=== PATIENT | female | born 1960 | race Caucasian/White ===

== ENCOUNTER 2021-08-05 10:23 | Outpatient (REF) | payer MEDICARE, SELFPAY ==
--- NOTE | ~2021-08-05 | MM_ITS ---
EXAMINATION: MM SCREENING DIGITAL BREAST TOMOSYNTHESIS, BILATERAL CLINICAL INFORMATION: Screening. Asymptomatic. The lifetime risk of breast cancer based on the Tyrer-Cuzick Model is 6%. COMPARISON: Mammography: 02/11/2018, 12/03/2016, 08/28/2015 TECHNIQUE: Digital breast tomosynthesis is performed in both the craniocaudal and mediolateral oblique views along with computer-aided detection (CAD). Synthesized 2D images are generated from the tomosynthesis. FINDINGS: The breasts are heterogeneously dense, which may obscure small masses (ACR BI-RADS breast composition Category c). There are no significant masses, abnormal calcifications, or other abnormalities. Parenchymal pattern is similar to prior studies. There is no developing density or architectural abnormality. The axilla and skin contours are unremarkable. No significant changes. MM/MM tomosynthesis screening BI IMPRESSION: No mammographic evidence of malignancy. ASSESSMENT: BI-RADS 1: Negative RECOMMENDATION: Routine annual mammography screening. This patient's information was entered into a reminder system with a target due date for their next mammogram.
== END 2021-08-05 10:24 | disposition home or self-care (01) ==
LOC: HO.MAMMO 10:23
PROVIDERS: PCP Internal Medicine; Visit Provider Internal Medicine
DX: Z12.31 Encounter for screening mammogram for malignant neoplasm of breast (principal)
CPT/HCPCS: 77063; 77067

== ENCOUNTER 2021-08-05 12:19 | Outpatient (REF) | payer MEDICARE, SELFPAY ==
[2021-08-06 09:17] LABS: CT PCR NOT DETECTED (Not Detect.); NG PCR NOT DETECTED (Not Detect.)
[2021-08-06 11:05] LABS: BV Int Neg Control Negative (Negative); BV Int Pos Control Positive (Positive)
[2021-08-07 20:51] LABS: HPV mRNA E6/E7 rflx Not Detected (Not Detected)
== END 2021-08-05 12:20 | disposition home or self-care (01) ==
LOC: HO.LAB 12:19
PROVIDERS: Visit Provider Advanced Practice Midwife
DX: Z12.31 Encounter for screening mammogram for malignant neoplasm of breast (principal); Z01.419 Encounter for gynecological examination (general) (routine) without abnormal findings; Z11.51 Encounter for screening for human papillomavirus (HPV); Z20.2 Contact with and (suspected) exposure to infections with a predominantly sexual mode of transmission
CPT/HCPCS: 77063; 77067; 87480; 87491; 87510; 87591; 87624; 87660; 88142

== ENCOUNTER 2022-05-27 15:15 | Outpatient (REF) | payer MEDICARE, SELFPAY ==
[2022-05-27 16:21] LABS: Appearance Urine Clear; Color Urine Yellow; Glucose Urine UA Negative (Negative); Leukocyte Esterase Urine Negative (Negative); Nitrite Urine Negative (Negative); Specific Gravity - Urine 1.025 (1.005-1.025); UMIC TRIGGER UACC YES; Urine Blood Trace (Negative); Urine Ketones Negative (Negative); Urine Protein Negative (Neg-Trace)
[2022-05-27 16:26] LABS: Bacteria Urine 1+ (None Seen); Hyaline Casts Urine 0-2 /LPF (0-2); WBC Urine 0-5 /HPF (0-5)
== END 2022-05-27 15:16 | disposition home or self-care (01) ==
LOC: HO.LAB 15:15
PROVIDERS: Visit Provider Advanced Practice Midwife
DX: R10.2 Pelvic and perineal pain (principal)
CPT/HCPCS: 81001; 81003; 99212

== ENCOUNTER 2022-06-06 02:13 | Emergency (ER) | payer MEDICARE, SELFPAY ==
--- NOTE | ~2022-06-06 | CT_ITS ---
EXAMINATION: CT ABDOMEN AND PELVIS WITHOUT CONTRAST CLINICAL INFORMATION: Suprapubic pain. COMPARISON: No similar priors. TECHNIQUE: Multidetector volumetric imaging was performed from the superior aspect of the liver through the pubic symphysis. Sagittal and coronal reformatted images were obtained on the technologist's workstation. This CT examination was performed using dose optimization techniques as appropriate, variously including the following: *Automated exposure control *Adjustment of mA and/or kV according to patient size (this includes techniques or standardized protocols for targeted exams where dose is matched to indication/reason for exam; i.e. extremities or head) *Use of iterative reconstruction technique DLP: 517 mGy-cm FINDINGS: LUNG BASES: Subsegmental atelectasis versus scarring in the right lower lobe. No focal consolidation or pleural effusion. LIVER, GALLBLADDER, AND BILIARY TREE: Limited noncontrast evaluation of the liver without discrete focal lesion. Normal gallbladder. No biliary ductal dilatation. PANCREAS: Limited noncontrast examination. No pancreatic ductal dilatation. No significant peripancreatic free fluid and fat stranding. SPLEEN: Atrophic. No discrete focal abnormality in this limited noncontrast examination. ADRENAL GLANDS: No adrenal mass. KIDNEYS AND URETERS: No nephrolithiasis or hydronephrosis. Cortical thinning/scarring of the lateral upper left kidney. No perinephric fat stranding. BLADDER: Underdistended limiting its evaluation. GASTROINTESTINAL TRACT: Nonspecific gastric distention. The small bowel is nondilated. Normal appendix. Mild diverticulosis. No pericolonic inflammatory changes. No evidence of bowel obstruction. ABDOMINAL WALL: No significant hernia is appreciated. LYMPH NODES: No pathologically enlarged lymph nodes. VASCULAR: Limited noncontrast examination. The infrarenal abdominal aorta measures up to 2.8 cm. PELVIC VISCERA: Unremarkable. OSSEOUS STRUCTURES: No acute or aggressive appearing osseous abnormalities. CT/CT abdomen pelvis wo IV con IMPRESSION: 1. Nonspecific gastric distention differentials include postprandial state, gastroparesis or gastric outlet obstruction. 2. Mild diverticulosis but no evidence of acute diverticulitis. 3. No nephrolithiasis or hydronephrosis.
[2022-06-06 02:15] VITALS: BP 126/80; PULSE 100; RESP 20; TEMP 36.5; O2SAT 94; BMI 27.6
--- NOTE | 2022-06-06 02:49 | ED_ITS ---
HPI - Abdominal Pain General Chief Complaint: Abdominal Pain Stated Complaint: pelvic pain Time Seen by Provider: 06/06/22 02:38 Source: patient Mode of arrival: EMS Limitations: no limitations History of Present Illness HPI narrative: Patient comes to the emergency room complaining of several weeks of suprapubic p ain. Patient states that it feels very sharp, radiating towards the back, intermittent. Patient has been evaluated by her OBGYN approximately 1 week and half ago. Patient denies chest pain or shortness of breath, no upper abdominal pain, no flank pain, no hematuria or dysuria. On 05/27/2022, patient was treated with double strength Bactrim. Patient states that she has no resolution of her symptoms. Patient complaining of feeling very anxious, states that she is afraid that she will be diagnosed with cancer. Patient also feeling anxious that we may need to do a pelvic exam. Requesting if he can skip it for the meantime. Patient had a pelvic exam on May 27, there was no abnormality visualized by her OB Gyne. Patient requesting 1 dose of p.o. Ativan Related Data Home Medications Medication Instructions Recorded Confirmed alprazolam 2 mg tablet (Xanax) 2 mg PO TID 08/05/21 05/27/22 levothyroxine 175 mcg capsule 175 mcg PO DAILY 08/05/21 05/27/22 simvastatin 20 mg tablet 20 mg PO DAILY 08/05/21 05/27/22 clonazepam 2 mg tablet mg PO 05/27/22 05/27/22 lamotrigine 200 mg tablet mg PO 05/27/22 05/27/22 omeprazole 20 mg capsule,delayed mg PO 05/27/22 05/27/22 release Previous Rx's Medication Instructions Recorded phenazopyridine 200 mg tablet 200 mg PO TID 6 doses #6 tabs 05/27/22 (Pyridium) sulfamethoxazole 800 1 tab PO Q12H #14 tabs 05/27/22 mg-trimethoprim 160 mg tablet tramadol 50 mg tablet 50 mg PO BID PRN pain #7 tabs 06/06/22 Allergies Allergy/AdvReac Type Severity Reaction Status Date / Time acetaminophen [From VICODIN] Allergy Unknown VOMITTING Verified 05/27/22 14:22 hydrocodone [Vicodin] Allergy Unknown nausea and Verified 05/27/22 14:22 vomiting From VICODIN Allergy Unknown VOMITTING Uncoded 05/27/22 14:22 Review of Systems Review of Systems Constitutional : No Weight loss, No Fever, No Chills, No Night Sweats, No Fatigue, No Malaise ENT/Mouth : No Hearing loss, No Ear Pain, No Nasal Congestion, No Sinus Pain, No Hoarseness, No sore throat, No Rhinorrhea, No Swallowing Difficulty Eyes: No Eye Pain, No Swelling, No Redness, No Foreign Body, No Discharge, No Vision Changes Cardiovascular : No Chest Pain, No SOB, No Dyspnea on Exertion, No Orthopnea, No Edema, No Palpitations Respiratory : No Cough, No Sputum, No Wheezing, No Smoke Exposure, No Dyspnea Gastrointestinal : No Nausea, No Vomiting, No Diarrhea, No Constipation, complaining of suprapubic sharp pain lasting for 30 minutes, intermittently, no pain at this time, no hematochezia Genitourinary : no irregular bleeding, No Dysuria, No Urinary Frequency, No Hematuria, No Urinary Incontinence, No Urgency, No Flank Pain, No Urinary Flow Changes, No Hesitancy Musculoskeletal : No joint pain, No Myalgias, No Joint Swelling Skin : No Skin Lesions, No rash Neuro : No Weakness, No Numbness, No Paresthesias, No Loss of Consciousness, No Dizziness, No Headache Psych : No Anxiety/Panic, No Depression, No SI/HI/AH/VH, No Social Issues, Heme/Lymph: No Bruising, No Bleeding,No Lymphadenopathy Endocrine : No Polyuria, No Polydipsia, No Temperature Intolerance PMFSH Past Medical History Medical History Bipolar 1 disorder COPD (chronic obstructive pulmonary disease) Hypothyroid Surgical History H/O shoulder surgery History of carpal tunnel surgery Family History Family History Father Lung cancer Social History Social History Alcohol intake: never Patient Tobacco Use Status: Current someday Tobacco user Cigarettes Per Day: 10 Smoked in Last 30 Days: Yes Use of substances other than those prescribed or required for medical reasons: No Advance Directives: No Advance Directives Information Provided: No Patient : No Gender identity: Female Physical Exam ED Vital Signs: Vital Signs - 24 hr 06/06/22 02:15 06/06/22 05:58 Temperature 97.7 F 98.2 F Pulse Rate 100 71 Respiratory Rate 20 18 Blood Pressure 126/80 149/111 H Pulse Oximetry 94 98 Oxygen Delivery Method Room Air Nasal Cannula Oxygen Flow Rate 2 BMI result Body Mass Index 27.6 Const Other: Appearance: Alert. Oriented X3. No acute distress. Eyes: Pupils equal, round and reactive to light. ENT: Pharynx normal. Neck: Normal inspection. Neck supple. No lymph nodes noted. No crepitus CVS: Normal heart rate and rhythm. Pulses normal. Normal S1 and S2 Respiratory: No respiratory distress. Breath sounds normal. No Wheezing. No rales Abdomen: Soft and nontender. No rigidity. No distention. Skin: Skin warm and dry. Normal skin color. Normal skin turgor. Extremities: No lower extremity edema. No Lacerations. No Rash Neuro: Oriented X 3. No motor deficit. No sensory deficit. Moving all extremities. No slurred speech. CN 2 through 12 grossly intact Psych: calm, cooperative, slightly anxious Course Course Course Narrative: All the patient's labs and imaging pending. Patient has an ultrasound pending. At this time, we will get an abdomen/pelvis CT I discussed the CT scan and labs with the patient, no acute findings. I discussed with the patient that she needs to follow-up with her OBGYN and also get her ultrasound down as scheduled. Patient states that her ultrasound is to be done sometime in June. Patient states that she knows someone from administration, and stating that she will pull strings to have her ultrasound done as soon as possible. Of note, I was informed by the patient's nurse, technicians, and community support worker that the patient accused them from talking poorly of the hospital in patients while they were outside the patient's room or in the nurse's unit. The nurses, technicians and the community support worker all denied that this is true. They state that Patient misinterpreted what she heard. Patient demanding to speak to the charge nurse. I discussed with the patient that at this time, all the nurses and charge nurses are changing shift, and there is a critical patient that needs to be taking care of 1st. Once patient's nurse and charge nurse became available, they went to talk to the patient. The nurses told me that they felt that they were being bullied by the patient, as the patient kept telling them that she was texting higher ups telling them you know who I know When patient's nurse walked into the room to check on her, the patient told her nurse I want you to know that I am going to report this , and the patient's nurse had no idea what the patient was talking about Medical Decision Making Differential Diagnosis Differential Diagnoses: The differential diagnosis associated with the presentation includes (UTI, diverticulitis, ureterolithiasis) Lab Data Result Diagrams: 06/06/22 05:16 06/06/22 06:24 Labs: Lab Results 06/06/22 06/06/22 06/06/22 Range/Units 02:40 02:40 05:16 WBC 8.3 9.0 (4.8-10.8) X10*3/uL RBC 3.96 L 3.54 L (4.20-5.50) X10*6/uL Hgb 13.4 11.9 L (12.0-16.0) g/dl Hct 40.8 37.4 (37.0-47.0) % MCV 103.0 H 105.6 H (80.0-98.0) fL MCH 33.8 H 33.6 H (27.0-33.0) pg MCHC 32.8 31.8 (31.0-35.0) g/dl RDW 12.7 12.7 (11.0-16.0) % Plt Count 297 266 (160-400) X10*3/uL MPV 8.8 L 8.8 L (9.4-12.3) fL Immature Gran % (Auto) 0.1 0.3 (0.0-0.4) % Neut % (Auto) 35.2 L 42.5 L (45-73) % Lymph % (Auto) 49.0 H 40.0 (20-40) % Tompkins % (Auto) 8.0 9.4 (2-11) % Eos % (Auto) 6.9 H 6.8 H (0-4) % Baso % (Auto) 0.8 1.0 (0-2) % Lymph # (Auto) 4.1 3.6 (1.2-4.9) X10*3/uL Tompkins # (Auto) 0.7 0.8 (0.1-1.2) X10*3/uL Eos # (Auto) 0.6 H 0.6 H (0.0-0.4) X10*3/uL Baso # (Auto) 0.1 0.1 (0.0-0.2) X10*3/uL Abs Immat Gran (auto) 0.01 0.03 (0.00-0.03) X10*3/uL Absolute Neuts (auto) 2.9 3.8 (2.0-8.3) x10*3/uL Absolute Nucleated RBC 0.000 0.000 (0.0-0.012) X10*3/uL Nucleated RBC % (auto) 0.0 0.0 (0.0-0.2) /100WBC Sodium 141 (135-145) mmol/L Potassium 4.3 (3.3-5.1) mmol/L Chloride 105 (96-108) mmol/L Carbon Dioxide 26 (22-29) mmol/L Anion Gap 14 (12-20) BUN 13 (9-16) mg/dL Creatinine 1.50 H (0.5-1.4) mg/dL Estim Creat Clear Calc 41.7 Estimated GFR 35 Random Glucose 96 (60-115) mg/dL Calcium 9.7 (8.4-10.2) mg/dL Total Bilirubin 0.2 (0.0-1.0) mg/dL Direct Bilirubin < 0.2 (0.0-0.5) mg/dL AST 22 (5-31) U/L ALT 15 (0-31) U/L Alkaline Phosphatase 81 (39-117) U/L Total Protein 7.3 (6.5-8.0) g/dL Albumin 4.4 (3.5-5.0) g/dL Lipase 18 (8-78) U/L Urine Color Urine Appearance Urine pH (5.0-9.0) Ur Specific Antlers (1.005-1.025) Urine Protein (Neg-Trace) mg/dL Urine Glucose (UA) (Negative) mg/dL Urine Ketones (Negative) mg/dL Urine Blood (Negative) Urine Nitrite (Negative) Ur Leukocyte Esterase (Negative) 06/06/22 06/06/22 Range/Units 06:00 06:24 WBC (4.8-10.8) X10*3/uL RBC (4.20-5.50) X10*6/uL Hgb (12.0-16.0) g/dl Hct (37.0-47.0) % MCV (80.0-98.0) fL MCH (27.0-33.0) pg MCHC (31.0-35.0) g/dl RDW (11.0-16.0) % Plt Count (160-400) X10*3/uL MPV (9.4-12.3) fL Immature Gran % (Auto) (0.0-0.4) % Neut % (Auto) (45-73) % Lymph % (Auto) (20-40) % Tompkins % (Auto) (2-11) % Eos % (Auto) (0-4) % Baso % (Auto) (0-2) % Lymph # (Auto) (1.2-4.9) X10*3/uL Tompkins # (Auto) (0.1-1.2) X10*3/uL Eos # (Auto) (0.0-0.4) X10*3/uL Baso # (Auto) (0.0-0.2) X10*3/uL Abs Immat Gran (auto) (0.00-0.03) X10*3/uL Absolute Neuts (auto) (2.0-8.3) x10*3/uL Absolute Nucleated RBC (0.0-0.012) X10*3/uL Nucleated RBC % (auto) (0.0-0.2) /100WBC Sodium 140 (135-145) mmol/L Potassium 4.5 (3.3-5.1) mmol/L Chloride 107 (96-108) mmol/L Carbon Dioxide 26 (22-29) mmol/L Anion Gap 12 (12-20) BUN 15 (9-16) mg/dL Creatinine 1.18 (0.5-1.4) mg/dL Estim Creat Clear Calc 53.0 Estimated GFR 46 Random Glucose 95 (60-115) mg/dL Calcium 8.8 D (8.4-10.2) mg/dL Total Bilirubin (0.0-1.0) mg/dL Direct Bilirubin (0.0-0.5) mg/dL AST (5-31) U/L ALT (0-31) U/L Alkaline Phosphatase (39-117) U/L Total Protein (6.5-8.0) g/dL Albumin (3.5-5.0) g/dL Lipase (8-78) U/L Urine Color Yellow Urine Appearance Clear Urine pH 5.5 (5.0-9.0) Ur Specific Antlers >= 1.030 H (1.005-1.025) Urine Protein Negative (Neg-Trace) mg/dL Urine Glucose (UA) Negative (Negative) mg/dL Urine Ketones Trace (Negative) mg/dL Urine Blood Negative (Negative) Urine Nitrite Negative (Negative) Ur Leukocyte Esterase Negative (Negative) Independent Interpretation I performed an independent interpretation of an: CT Scan Interpretation: My interpretation of the CT scan of the abdomen, shows no acute abnormalities, agree with radiology report: FINDINGS: LUNG BASES: Subsegmental atelectasis versus scarring in the right lower lobe. No focal consolidation or pleural effusion.? LIVER, GALLBLADDER, AND BILIARY TREE: Limited noncontrast evaluation of the liver without discrete focal lesion. Normal gallbladder. No biliary ductal dilatation. PANCREAS: Limited noncontrast examination. No pancreatic ductal dilatation. No significant peripancreatic free fluid and fat stranding. ? SPLEEN: Atrophic. No discrete focal abnormality in this limited noncontrast examination.? ADRENAL GLANDS: No adrenal mass.? KIDNEYS AND URETERS: No nephrolithiasis or hydronephrosis. Cortical thinning/scarring of the lateral upper left kidney. No perinephric fat stranding.? BLADDER: Underdistended limiting its evaluation.? GASTROINTESTINAL TRACT: Nonspecific gastric distention. The small bowel is nondilated. Normal appendix. Mild diverticulosis. No pericolonic inflammatory changes. No evidence of bowel obstruction.? ABDOMINAL WALL: No significant hernia is appreciated.? LYMPH NODES: No pathologically enlarged lymph nodes. VASCULAR: Limited noncontrast examination. The infrarenal abdominal aorta measures up to 2.8 cm. PELVIC VISCERA: Unremarkable.? OSSEOUS STRUCTURES: No acute or aggressive appearing osseous abnormalities.? CT/CT abdomen pelvis wo IV con IMPRESSION: 1.? Nonspecific gastric distention differentials include postprandial state, gastroparesis or gastric outlet obstruction. 2.? Mild diverticulosis but no evidence of acute diverticulitis. 3.? No nephrolithiasis or hydronephrosis. ? Medications Administered Discontinued Medications Generic Name Dose Route Start Last Admin Trade Name Freq PRN Reason Stop Dose Admin Sodium Chloride 1,000 mls @ 999 mls/hr 06/06/22 03:32 06/06/22 05:08 Ns IVCONT 06/06/22 04:32 Infused .Q1H1M ONE Infusion Lorazepam 1 mg 06/06/22 02:51 06/06/22 03:00 Lorazepam 1 Mg Tablet PO 06/06/22 02:52 1 mg ONCE ONE Administration Discharge Plan Discharge Clinical Impression: Abdominal pain Patient Disposition: Home, Self-Care Instructions: Abdominal Pain (ED) Additional Instructions: Please follow-up with your primary care physician tomorrow. If you have any worsening or new symptoms, please return to the emergency room or call 911 Prescriptions: New tramadol 50 mg tablet 50 mg PO BID PRN (Reason: pain) Qty: 7 0RF No Action simvastatin 20 mg tablet 20 mg PO DAILY levothyroxine 175 mcg capsule 175 mcg PO DAILY alprazolam [Xanax] 2 mg tablet 2 mg PO TID omeprazole 20 mg capsule,delayed release(DR/EC) PO clonazepam 2 mg tablet PO lamotrigine 200 mg tablet PO sulfamethoxazole-trimethoprim 800-160 mg tablet 1 tab PO Q12H Qty: 14 0RF phenazopyridine [Pyridium] 200 mg tablet 200 mg PO TID Qty: 6 0RF Referrals: Elias Cheng MD [Physician] - 3 days Interventions: ED Discharge Assessment Last Done: 06/06/22 07:25
[2022-06-06 02:50] LABS: Basophils Absolute Auto 0.1 X10*3/uL (0.0-0.2); Basophils Percent Auto 0.8 % (0-2); Eosinophils Absolute Auto 0.6 X10*3/uL (0.0-0.4); Eosinophils Percent Auto 6.9 % (0-4); Hematocrit 40.8 % (37.0-47.0); Hemoglobin 13.4 g/dl (12.0-16.0); Imm Gran Abs Auto 0.01 X10*3/uL (0.00-0.03); Imm Gran Pct Auto 0.1 % (0.0-0.4); Lymphocytes Absolute Auto 4.1 X10*3/uL (1.2-4.9); MANUAL DIFF FLAG NO; Mean Corpuscular HGB Conc 32.8 g/dl (31.0-35.0); Mean Corpuscular Hemoglobin 33.8 pg (27.0-33.0); Mean Platelet Volume 8.8 fL (9.4-12.3); Monocytes Absolute Auto 0.7 X10*3/uL (0.1-1.2); Neutrophils Absolute Auto 2.9 x10*3/uL (2.0-8.3); Neutrophils Percent Auto 35.2 % (45-73); Platelet Count 297 X10*3/uL (160-400); Red Blood Count 3.96 X10*6/uL (4.20-5.50); Red Cell Distribution Width 12.7 % (11.0-16.0); White Blood Count 8.3 X10*3/uL (4.8-10.8)
[2022-06-06] MEDS: LORazepam 1 MG TABLET PO (03:00)
[2022-06-06 03:06] LABS: Alanine Aminotransferase 15 U/L (0-31); Albumin Level 4.4 g/dL (3.5-5.0); Alkaline Phosphatase 81 U/L (39-117); Anion Gap 14 (12-20); Aspartate Amino Transferase 22 U/L (5-31); Bilirubin Direct < 0.2 mg/dL (0.0-0.5); Bilirubin Total 0.2 mg/dL (0.0-1.0); Blood Urea Nitrogen 13 mg/dL (9-16); Calcium 9.7 mg/dL (8.4-10.2); Carbon Dioxide 26 mmol/L (22-29); Chloride 105 mmol/L (96-108); Creatinine Clr Calc Pharmacy 41.7; Estimated Glomerular Filt Rate 35; Glucose Random 96 mg/dL (60-115); Lipase 18 U/L (8-78); Potassium 4.3 mmol/L (3.3-5.1); Sodium 141 mmol/L (135-145); Total Protein 7.3 g/dL (6.5-8.0)
[2022-06-06] MEDS: 0.9 % Sodium Chloride 1,000 ML 999 ML IVCONT (03:49)
[2022-06-06 05:24] LABS: MANUAL DIFF FLAG NO
[2022-06-06 05:25] LABS: Basophils Absolute Auto 0.1 X10*3/uL (0.0-0.2); Eosinophils Absolute Auto 0.6 X10*3/uL (0.0-0.4); Eosinophils Percent Auto 6.8 % (0-4); Hematocrit 37.4 % (37.0-47.0); Hemoglobin 11.9 g/dl (12.0-16.0); Imm Gran Abs Auto 0.03 X10*3/uL (0.00-0.03); Imm Gran Pct Auto 0.3 % (0.0-0.4); Lymphocytes Absolute Auto 3.6 X10*3/uL (1.2-4.9); Mean Corpuscular HGB Conc 31.8 g/dl (31.0-35.0); Mean Corpuscular Hemoglobin 33.6 pg (27.0-33.0); Mean Corpuscular Volume 105.6 fL (80.0-98.0); Mean Platelet Volume 8.8 fL (9.4-12.3); Monocytes Absolute Auto 0.8 X10*3/uL (0.1-1.2); Monocytes Percent Auto 9.4 % (2-11); Neutrophils Absolute Auto 3.8 x10*3/uL (2.0-8.3); Neutrophils Percent Auto 42.5 % (45-73); Platelet Count 266 X10*3/uL (160-400); Red Blood Count 3.54 X10*6/uL (4.20-5.50); Red Cell Distribution Width 12.7 % (11.0-16.0)
[2022-06-06 05:58] VITALS: BP 149/111; PULSE 71; RESP 18; TEMP 36.8; O2SAT 98
[2022-06-06 06:10] LABS: Appearance Urine Clear; Color Urine Yellow; Glucose Urine UA Negative (Negative); Leukocyte Esterase Urine Negative (Negative); Nitrite Urine Negative (Negative); PH 5.5 (5.0-9.0); Specific Gravity - Urine >= 1.030 (1.005-1.025); Urine Blood Negative (Negative); Urine Ketones Trace mg/dL (Negative); Urine Protein Negative (Neg-Trace)
[2022-06-06 06:49] LABS: Anion Gap 12 (12-20); Blood Urea Nitrogen 15 mg/dL (9-16); Calcium 8.8 mg/dL (8.4-10.2); Carbon Dioxide 26 mmol/L (22-29); Chloride 107 mmol/L (96-108); Estimated Glomerular Filt Rate 46; Glucose Random 95 mg/dL (60-115); Potassium 4.5 mmol/L (3.3-5.1); Sodium 140 mmol/L (135-145)
[2022-06-06 07:24] VITALS: BP 115/80; PULSE 71; RESP 16; O2SAT 92
== END 2022-06-06 07:27 | disposition home or self-care (01) ==
PROVIDERS: Emergency Provider Emergency Medicine
DX: R10.30 Lower abdominal pain, unspecified (principal); F41.9 Anxiety disorder, unspecified; F17.210 Nicotine dependence, cigarettes, uncomplicated
CPT/HCPCS: 36415; 74176; 80048; 80053; 81003; 82248; 83690; 85025; 96360; 99284

== ENCOUNTER 2022-06-30 14:30 | Outpatient (REF) | payer MEDICARE, SELFPAY ==
--- NOTE | ~2022-06-30 | US_ITS ---
EXAMINATION: US PELVIS COMPLETE US PELVIS ENDOVAGINAL CLINICAL INFORMATION: Pelvic and perineal pain. Postmenopausal. COMPARISON: None. TECHNIQUE: Transabdominal and transvaginal images of the pelvis were obtained. FINDINGS: UTERUS: Anteverted, anteflexed Normal size and contour, measuring 4.8 x 2.3 x 3.3 cm (cervix to fundus x AP x transverse). Uniform, homogeneous endometrium measures 0.2 cm in width. RIGHT OVARY: Normal size and echogenicity measuring 2.2 x 1.0 x 1.8 cm. LEFT OVARY: Normal size and echogenicity measuring 1.3 x 1.2 x 0.9 cm. FREE FLUID: No pelvic free fluid. US/US pelvic and transvaginal IMPRESSION: Normal pelvic ultrasound. No etiology for pelvic pain identified.
== END 2022-06-30 14:31 | disposition home or self-care (01) ==
LOC: HO.US 14:30
PROVIDERS: Visit Provider Advanced Practice Midwife
DX: R10.2 Pelvic and perineal pain (principal)
CPT/HCPCS: 76830; 76856

== ENCOUNTER 2023-05-06 11:51 | Outpatient (REF) | payer MEDICARE, SELFPAY | END 2023-05-06 11:52 | disposition home or self-care (01) | LOC: HO.MAMMO 11:51 | PROVIDERS: Visit Provider Internal Medicine | DX: Z12.31 Encounter for screening mammogram for malignant neoplasm of breast (principal); Z01.419 Encounter for gynecological examination (general) (routine) without abnormal findings; Z78.0 Asymptomatic menopausal state; Z87.42 Personal history of other diseases of the female genital tract | CPT/HCPCS: 77063; 77067; 87624; 88142; G0101 ==

== ENCOUNTER → 2023-05-06 12:00 | Outpatient (BNV) | payer MEDICARE, SELFPAY | PROVIDERS: Visit Provider Radiology Diagnostic Radiology | DX: Z12.31 Encounter for screening mammogram for malignant neoplasm of breast (principal) | CPT/HCPCS: 77063; 77067 ==

== ENCOUNTER 2023-05-06 12:55 | Outpatient (AMB) | payer MEDICARE, SELFPAY ==
[2023-05-06 13:01] VITALS: BP 124/78; BMI 27.2
--- NOTE | 2023-05-06 13:01 | MHC.OFFVIS ---
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: No Information Interpreted: non-clinical & clinical Shuttle Veneering Supervisor: Shuttle Veneering Supervisor Present (Tolu) Allergies acetaminophen [From VICODIN] Allergy (Unknown, Verified 05/06/23 13:05) VOMITTING hydrocodone [Vicodin] Allergy (Unknown, Verified 05/06/23 13:05) nausea and vomiting From VICODIN Allergy (Unknown, Uncoded 05/06/23 13:05) VOMITTING Medication List - Last Reconciled 05/06/23 by Dania Fajardo CNM budesonide-formoterol 160-4.5 mcg/actuation (Symbicort) inhalation desvenlafaxine succinate ER 25 mg PO DAILY fluticasone propionate 50 mcg/actuation sprays intranasal lamotrigine mg PO levothyroxine 175 mcg PO DAILY omeprazole mg PO simvastatin 20 mg PO DAILY Is last menstrual period known: No Post menopausal: Yes Patient : No 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 She says she has been going through terrible depression. Her therapist that she was with for many years to retired and moved to another state. She has a new psychologist now who has been going through all of her medications and told her she was on way too many meds and high doses and is gradually weaning her down but it has been very difficult in addition she has insomnia because she thinks a lot at night she is very depressed about her children being estranged from her when she was a single mom and did everything she could for them. She was diagnosed with COPD needs oxygen at times she will be having a test for that soon. She has not been sexually active in 3 years. She suffers from severe constipation and the Linzess help some but sometimes she still has it so she has hemorrhoids. Holidays a very difficult. [facility] Medical History COPD (chronic obstructive pulmonary disease) Hypothyroid Bipolar 1 disorder Surgical History History of carpal tunnel surgery H/O shoulder surgery Family History Father Lung cancer Social History Alcohol intake: never Patient Tobacco Use Status: Current someday Tobacco user Cigarettes Per Day: 10 Gender identity: Female Female Reproductive History Menstrual Age of Menarche: 12 control method: none Total pregnancies: 4 Full term: 3 Number of Living Children: 3 Ab spontaneous: 1 Date of last pap smear: 08/06/21 (negative) History of abnormal pap smear: Yes (2006 2005 2004 2001 LGSIL, 2000 STEPH 1) Date of Mammogram: 05/06/23 (pending) Physical Exam Vital Signs: Last Vital Signs BP 124/78 05/06/23 13:01 BMI result Body Mass Index 27.2 Const General: healthy appearing, comfortable, no acute distress, well developed and alert Nutritional Appearance: average body habitus Orientation/consciousness: patient oriented x3 Limitations: no limitations HEENT Head: Yes normocephalic Neck Neck: Yes normal visual inspection Chest Chest palpation & inspection: normal inspection of the chest Breast/axilla inspection: normal inspection of the breasts and normal inspection of the axillae Breast/axilla palpation: normal palpation of the breasts and normal palpation of the axillae Resp Effort & Inspection: normal respiratory effort GI Inspection: Yes normal to inspection, No Abdominal wall edema and No distended Palpation (GI): Soft to palpation and nontender Other: Postmenopausal vaginal atrophic changes. Vagina pink moist cervix multiparous evidence of previous LEEP. No organomegaly evident nontender good tone with Kegel. General: Yes bladder normal to palpation External Female Exam: normal external appearance and normal appearance of the urethra Speculum Exam - Vagina: normal appearance of the vagina, normal palpation and normal vaginal discharge Speculum Exam - Cervix: normal appearance of the cervix, normal palpation and nontender Bimanual exam- vagina & uterus: normal bimanual exam, normal palpation, uterine size normal, bladder normal to palpation, consistency normal, normal palpation, uterine mobility normal, uterine shape normal, No Cervical tenderness present, non-tender and no cervical motion tenderness Bimanual Exam- Adnexa, other: normal adnexae, no masses, normal and No adnexal tenderness Neuro General: patient oriented x3 Assessment & Plan Assessment & Plan (1) Hx of abnormal cervical Pap smear: Comment: +hpv, had procedure to burn cervix, w Dr Burt about 15-20 yrs ago////. 08/05/21 pap= neg, neg hpv.; 05/06/2023 Pap done may not need any further Paps after this. Code(s): Z87.42 - Personal history of other diseases of the female genital tract (2) Well woman exam with routine gynecological exam: Code(s): Z01.419 - Encounter for gynecological examination (general) (routine) without abnormal findings (3) Postmenopausal: Code(s): Z78.0 - Asymptomatic menopausal state (4) Hx of constipation: Code(s): Z87.19 - Personal history of other diseases of the digestive system (5) Depression: Comment: Has providers who are trying to help her manage this. Code(s): F32.A - Depression, unspecified Plan -----Discussed in this visit the following: healthy balanced diet, regular and consistent exercise, getting recommended health screens, doing the best she can for her particular health concerns, kegel exercises, pap smear screening and followup recommendations, mammography screening and SBE, normal changes in cycles in her life stage--- . Discussed that we do not do Pap smears anymore after age 65 per the current guidelines. This 1 is normal little be her last Pap smear but we still recommend annual teleradiologist exams she stated that she would call if she has any issues . She does have her primary care provider who helps her with the constipation issues and COPD she will be having a test done soon on the COPD and she is not sure what that is. She voiced depression over her children being estranged from her. She does have a friend that she talks to as well as the psychologist who is changing her meds and working with her. Acknowledged the challenges of the holidays and all it brings up when people are alone. RTC 1 year and p.r.n. Coding Level of Care Code Est Pt Prev Care 40-64y(35059) Diagnoses Hx of abnormal cervical Pap smear Z87.42 Well woman exam with routine gynecological exam Z01.419 Postmenopausal Z78.0 Hx of constipation Z87.19 Depression F32.A
== END 2023-05-06 13:47 | disposition home or self-care (01) ==
PROVIDERS: PCP Internal Medicine; Visit Provider Advanced Practice Midwife
DX: Z01.419 Encounter for gynecological examination (general) (routine) without abnormal findings (principal); Z87.42 Personal history of other diseases of the female genital tract; Z78.0 Asymptomatic menopausal state; Z87.19 Personal history of other diseases of the digestive system; F32.A Depression, unspecified
CPT/HCPCS: G0101; Q0091

== ENCOUNTER 2023-05-06 14:33 | Outpatient (REF) | payer MEDICARE, SELFPAY ==
[2023-05-12 06:29] LABS: HPV mRNA E6/E7 rflx Not Detected (Not Detected)
== END 2023-05-06 14:34 | disposition home or self-care (01) ==
LOC: HO.LNP 14:33
PROVIDERS: Visit Provider Advanced Practice Midwife
DX: Z13.89 Encounter for screening for other disorder (principal)
CPT/HCPCS: 87624; 88142

== ENCOUNTER 2023-06-17 20:26 | Inpatient (IN) | payer MEDICARE, SELFPAY ==
--- NOTE | ~2023-06-17 | XR_ITS ---
EXAMINATION: XR CHEST CLINICAL INFORMATION: Cough. COMPARISON: Chest radiograph from 01/05/2020. CT abdomen and pelvis from 06/06/2022. TECHNIQUE: PA view of the chest was obtained. FINDINGS: The lungs are well expanded. No evidence of focal consolidation, pleural effusion, pulmonary edema, or pneumothorax. The cardiomediastinal silhouette is within normal limits. No acute osseous abnormalities. Instrumented anterior fusion of the lower cervical spine. XR/XR chest 1V IMPRESSION: No radiographically evident acute pulmonary abnormalities.
[2023-06-17 20:49] VITALS: BP 130/75; PULSE 108; RESP 18; TEMP 36.4; O2SAT 94; BMI 25.4
--- NOTE | 2023-06-17 21:22 | ED.PSYCH ---
HPI - Psych General Chief Complaint: Psychiatric Symptoms Stated Complaint: ANXIETY/CRISIS,HALLUCINATIONS,SEEN EARLIER PER EMS Time Seen by Provider: 06/17/23 20:36 Source: patient Mode of arrival: EMS Limitations: no limitations History of Present Illness HPI Narrative: Patient Is a 63 year old female with reported past medical history of bipolar disorder presenting to the emergency department with reports of auditory visual hallucinations. She reports feeling ?not well?. She denies suicidal or homicidal ideations. Is difficult to obtain a clear timeline of events, but with seems though in the past few days she was at [facility], seemingly was kept overnight either in the ED or inpatient and was discharged, then returned in left question AMA, as she did not feel that she was going to gain benefit from her stay there. Over the past 6 weeks it seems as though her long-term psychiatric prescriber of 25 years had retired or left the practice resulting in her seeing a new prescriber. She evidently weaned off of Xanax and Klonopin, and has had multiple medication changes over this time she feels as though she is not stable in none of the medications are helping. She denies any physical complaints at this time. Denies SI/HI. Related Data Home Medications Medication Instructions Recorded Confirmed simvastatin 20 mg tablet 20 mg PO DAILY 08/05/21 06/17/23 lamotrigine 200 mg tablet 200 mg PO BEDTIME 05/27/22 06/17/23 omeprazole 20 mg capsule,delayed 20 mg PO DAILY 05/27/22 06/17/23 release budesonide-formoterol HFA 160 2 puff inhalation BID 05/06/23 06/18/23 mcg-4.5 mcg/actuation aerosol inhaler (Symbicort) levothyroxine 150 mcg tablet 150 mcg PO DAILY 06/18/23 06/18/23 Allergies Allergy/AdvReac Type Severity Reaction Status Date / Time acetaminophen [From VICODIN] Allergy Unknown VOMITTING Verified 05/06/23 13:05 hydrocodone [Vicodin] Allergy Unknown nausea and Verified 05/06/23 13:05 vomiting From VICODIN Allergy Unknown VOMITTING Uncoded 05/06/23 13:05 Review of Systems Review of Systems: Yes all other systems are reviewed and are negative PMFSH Past Medical History Attestation statement: The following information was validated with the patient. Source: old records reviewed Medical History COPD (chronic obstructive pulmonary disease) Hypothyroid Bipolar 1 disorder Surgical History History of carpal tunnel surgery H/O shoulder surgery Family History Family History Father Lung cancer Social History Social History Alcohol intake: former Patient Tobacco Use Status: Current someday Tobacco user Cigarettes Per Day: 10 Smoked in Last 30 Days: No Use of substances other than those prescribed or required for medical reasons: No Advance Directives: No Advance Directives Information Provided: No Patient : No Gender identity: Female Physical Exam Vital Signs: Vital Signs: Last Vital Signs Temp 97.5 F 06/17/23 22:43 Pulse 77 06/18/23 04:00 Resp 15 06/18/23 10:06 BP 132/57 L 06/18/23 04:00 Pulse Ox 96 06/18/23 04:00 O2 Del Method Nasal Cannula 06/18/23 04:00 O2 Flow Rate 2 06/18/23 04:00 BMI result Body Mass Index 25.4 Appearance: Alert.?Oriented to person, place and time. No acute distress.?Normal affect. Eyes: Pupils equal, round and reactive to light.? ENT: Pharynx normal.?? Neck: Normal inspection.? Neck supple.?? CVS: Heart sounds normal. Normal heart rate and rhythm.? Pulses normal.?? Respiratory: No respiratory distress.? Lung sounds clear to auscultation bilaterally?? Abdomen: Soft and non-tender. Normoactive bowel sounds. Skin: Skin warm and dry.? Normal skin color.?? Extremities: No lower extremity edema. Neuro: Moves all extremities spontaneously. Sensation intact bilaterally. CN II-XII intact. No focal neuro deficits. Ambulates with normal steady gait. Course Course Course Narrative: Physician observation continued. VS stable, labs reassuring, mild leukocytosis, not toxic, CXR negative, UA negative, offered zyprexa today but ?if she took it RN thinks she might have pocketed it or threw it away. She is calming down a little bit after medications. Recheck VS no signs of HTN or tachycardia. Pending inpatient bed search Medications Administered Generic Name Dose Route Start Last Admin Trade Name Freq PRN Reason Stop Dose Admin Atorvastatin Calcium 10 mg 06/18/23 09:00 06/18/23 08:17 Atorvastatin Calcium 10 Mg Tablet PO 10 mg DAILY KIMBERLY Administration Fluticasone/Vilanterol 1 puff 06/18/23 09:00 06/18/23 08:59 Fluticasone/Vilanterol 200/25 Blst.W.Dev INHALE 1 puff DAILY KIMBERLY Administration Levothyroxine Sodium 150 mcg 06/18/23 09:00 06/18/23 08:58 Levothyroxine Sodium 150 Mcg Tablet PO 150 mcg DAILY KIMBERLY Administration Omeprazole 20 mg 06/18/23 09:00 06/18/23 08:58 Omeprazole 20 Mg Capsule.Dr PO 20 mg DAILY KIMBERLY Administration Discontinued Medications Generic Name Dose Route Start Last Admin Trade Name Freq PRN Reason Stop Dose Admin Hydroxyzine HCl 25 mg 06/18/23 00:53 06/18/23 00:59 Hydroxyzine Hcl 25 Mg Tablet PO 06/18/23 00:54 25 mg ONCE ONE Administration Hydroxyzine HCl 50 mg 06/18/23 10:37 06/18/23 10:40 Hydroxyzine Hcl 50 Mg Tablet PO 06/18/23 10:38 50 mg ONCE ONE Administration Olanzapine 10 mg 06/18/23 07:55 06/18/23 08:17 Olanzapine Odt 10 Mg Tab.Rapdis TRANSLINGU 06/18/23 07:56 10 mg ONCE ONE Administration Medical Decision Making Medical Decision Making MDM Narrative: Patient is a 63 old female past medical history of hypothyroidism, COPD, bipolar disorder presents emergency department reports of auditory and visual hallucinations as per HPI. At the time my examination she appears overall well, nontoxic, afebrile. No respiratory distress. She does seem to have very disorganized thought process, difficulty relaying any clear timeline of events. Often is distracted from conversation and appears to be responding to alternative stimuli. Plan to obtain basic labs for medical clearance, and refer to care team for evaluation as to whether psychiatric admission is warranted at this time. Differential Diagnosis Differential Diagnoses: The differential diagnosis associated with the presentation includes (Bipolar disorder, hallucinations, suspect less likely infectious/organic cause) Admission/Observation Consideration of admission/observation: Escalation of care including admission/observation considered (Seen narrative above ) Physician observation started at 01:00, ,calm and cooperative, hemodynamically stable, pending evaluation from care team for possible psych admission Consult Healthcare Provider Management of the patient was discussed with: Behavioral Health Provider (As noted above) Lab Data MDM Lab Attestation statement: I reviewed the patient's lab results. 06/17/23 22:22 06/17/23 22:22 Labs: Lab Results 06/17/23 06/17/23 06/18/23 Range/Units 21:12 22:22 03:10 WBC 13.7 H (4.8-10.8) X10*3/uL RBC 3.69 L (4.20-5.50) X10*6/uL Hgb 12.3 (12.0-16.0) g/dl Hct 36.5 L (37.0-47.0) % MCV 98.9 H (80.0-98.0) fL MCH 33.3 H (27.0-33.0) pg MCHC 33.7 (31.0-35.0) g/dl RDW 12.9 (11.0-16.0) % Plt Count 292 (160-400) X10*3/uL MPV 9.2 L (9.4-12.3) fL Immature Gran % (Auto) 0.2 (0.0-0.4) % Neut % (Auto) 59.6 (45-73) % Lymph % (Auto) 24.8 (20-40) % [place] % (Auto) 10.2 (2-11) % Eos % (Auto) 4.5 H (0-4) % Baso % (Auto) 0.7 (0-2) % Lymph # (Auto) 3.4 (1.2-4.9) X10*3/uL [place] # (Auto) 1.4 H (0.1-1.2) X10*3/uL Eos # (Auto) 0.6 H (0.0-0.4) X10*3/uL Baso # (Auto) 0.1 (0.0-0.2) X10*3/uL Abs Immat Gran (auto) 0.03 (0.00-0.03) X10*3/uL Absolute Neuts (auto) 8.1 (2.0-8.3) x10*3/uL Absolute Nucleated RBC 0.000 (0.0-0.012) X10*3/uL Nucleated RBC % (auto) 0.0 (0.0-0.2) /100WBC VBG pH (7.32-7.43) VBG pCO2 mmHg VBG pO2 mmHg VBG HCO3 (22-26) mmol/L VBG O2 Saturation % VBG Base Excess mmol/L Sodium 142 (135-145) mmol/L Potassium 3.6 (3.3-5.1) mmol/L Chloride 105 (96-108) mmol/L Carbon Dioxide 26 (22-29) mmol/L Anion Gap 15 (12-20) BUN 18 H (9-16) mg/dL Creatinine 1.32 (0.5-1.4) mg/dL Estim Creat Clear Calc 41.8 Estimated GFR 41 Random Glucose 132 H (60-115) mg/dL Calcium 9.6 D (8.4-10.2) mg/dL Total Bilirubin 0.2 (0.0-1.0) mg/dL AST 39 H (5-31) U/L ALT 15 (0-31) U/L Alkaline Phosphatase 88 (39-117) U/L Ammonia (13-55) umol/L Total Protein 7.2 (6.5-8.0) g/dL Albumin 4.1 (3.5-5.0) g/dL TSH (0.32-4.0) uIU/mL Free T4 (0.71-1.85) ng/dL Urine Color Yellow Urine Appearance Clear Urine pH 6.0 (5.0-9.0) Ur Specific White >= 1.030 H (1.005-1.025) Urine Protein Trace (Neg-Trace) mg/dL Urine Glucose (UA) Negative (Negative) mg/dL Urine Ketones Trace (Negative) mg/dL Urine Blood Trace H (Negative) Urine Nitrite Negative (Negative) Ur Leukocyte Esterase Negative (Negative) Urine RBC 6-10 H (0-2) /HPF Urine WBC 0-5 (0-5) /HPF Ur Squamous Epith Cells 3-5 (0-2) /HPF Urine Bacteria 1+ (None Seen) Hyaline Casts 0-2 (0-2) /LPF Urine Opiates Screen Not Detected (Not Detect) Urine Fentanyl Screen Not Detected (Not Detect) Ur Barbiturates Screen Not Detected (Not Detect) Ur Phencyclidine Scrn Not Detected (Not Detect) Ur Amphetamines Screen Not Detected (Not Detect) U Benzodiazepines Scrn Not Detected (Not Detect) Urine Cocaine Screen Not Detected (Not Detect) U Marijuana (THC) Screen POSITIVE H (Not Detect) Ethyl Alcohol < 10 mg/dL 06/18/23 06/18/23 06/18/23 Range/Units 08:26 08:27 08:32 WBC (4.8-10.8) X10*3/uL RBC (4.20-5.50) X10*6/uL Hgb (12.0-16.0) g/dl Hct (37.0-47.0) % MCV (80.0-98.0) fL MCH (27.0-33.0) pg MCHC (31.0-35.0) g/dl RDW (11.0-16.0) % Plt Count (160-400) X10*3/uL MPV (9.4-12.3) fL Immature Gran % (Auto) (0.0-0.4) % Neut % (Auto) (45-73) % Lymph % (Auto) (20-40) % [place] % (Auto) (2-11) % Eos % (Auto) (0-4) % Baso % (Auto) (0-2) % Lymph # (Auto) (1.2-4.9) X10*3/uL [place] # (Auto) (0.1-1.2) X10*3/uL Eos # (Auto) (0.0-0.4) X10*3/uL Baso # (Auto) (0.0-0.2) X10*3/uL Abs Immat Gran (auto) (0.00-0.03) X10*3/uL Absolute Neuts (auto) (2.0-8.3) x10*3/uL Absolute Nucleated RBC (0.0-0.012) X10*3/uL Nucleated RBC % (auto) (0.0-0.2) /100WBC VBG pH 7.40 (7.32-7.43) VBG pCO2 40 mmHg VBG pO2 98 mmHg VBG HCO3 25 (22-26) mmol/L VBG O2 Saturation 100.0 % VBG Base Excess 0.9 mmol/L Sodium (135-145) mmol/L Potassium (3.3-5.1) mmol/L Chloride (96-108) mmol/L Carbon Dioxide (22-29) mmol/L Anion Gap (12-20) BUN (9-16) mg/dL Creatinine (0.5-1.4) mg/dL Estim Creat Clear Calc Estimated GFR Random Glucose (60-115) mg/dL Calcium (8.4-10.2) mg/dL Total Bilirubin (0.0-1.0) mg/dL AST (5-31) U/L ALT (0-31) U/L Alkaline Phosphatase (39-117) U/L Ammonia 25 (13-55) umol/L Total Protein (6.5-8.0) g/dL Albumin (3.5-5.0) g/dL TSH 0.08 L (0.32-4.0) uIU/mL Free T4 1.24 (0.71-1.85) ng/dL Urine Color Urine Appearance Urine pH (5.0-9.0) Ur Specific White (1.005-1.025) Urine Protein (Neg-Trace) mg/dL Urine Glucose (UA) (Negative) mg/dL Urine Ketones (Negative) mg/dL Urine Blood (Negative) Urine Nitrite (Negative) Ur Leukocyte Esterase (Negative) Urine RBC (0-2) /HPF Urine WBC (0-5) /HPF Ur Squamous Epith Cells (0-2) /HPF Urine Bacteria (None Seen) Hyaline Casts (0-2) /LPF Urine Opiates Screen (Not Detect) Urine Fentanyl Screen (Not Detect) Ur Barbiturates Screen (Not Detect) Ur Phencyclidine Scrn (Not Detect) Ur Amphetamines Screen (Not Detect) U Benzodiazepines Scrn (Not Detect) Urine Cocaine Screen (Not Detect) U Marijuana (THC) Screen (Not Detect) Ethyl Alcohol mg/dL Independent Historian Clinical information obtained from an independent historian. History obtained from or confirmed by: EMS External Record Review External record reviewed: Outpatient record Discharge Plan Discharge Clinical Impression: Hallucinations Patient Disposition: Still a Patient Prescriptions: No Action levothyroxine 150 mcg tablet 150 mcg PO DAILY simvastatin 20 mg tablet 20 mg PO DAILY omeprazole 20 mg capsule,delayed release(DR/EC) 20 mg PO DAILY lamotrigine 200 mg tablet 200 mg PO BEDTIME budesonide-formoterol [Symbicort] 160-4.5 mcg/actuation HFA aerosol inhaler 2 puff inhalation BID Interventions: Lafe-Suicide Risk Severity Scale Last Done: 06/18/23 06:00
[2023-06-17 21:43] LABS: Amphetamine Screen Urine Not Detected (Not Detect); Barbiturates, Urine Not Detected (Not Detect); Benzodiazepines Screen Urine Not Detected (Not Detect); Cannabinoid Screen Urine POSITIVE (Not Detect); Cocaine Screen Urine Not Detected (Not Detect); Opiate Screen Urine Not Detected (Not Detect); Phencyclidine Screen Urine Not Detected (Not Detect)
--- NOTE | 2023-06-17 21:52 | PC.NURSE ---
Pt anjel with reports of AH/VH/ PT states to this RN she has recently had a lot of med changes with her new psych provider and since has been hearing and seeing things that are not there. She states he was seen at [facility] for anxiety on 06/16 and 06/17 but was discharged after being cleared by psych both times. PT reported to EMS she left [facility] because she was not satisfied with their care. PT changed over, labs drawn, urine collected, belongings secured. Plan of care ongoing
[2023-06-17 22:01] LABS: Fentanyl, urine Not Detected (Not Detect)
[2023-06-17 22:29] LABS: MANUAL DIFF FLAG NO
[2023-06-17 22:32] LABS: Basophils Absolute Auto 0.1 X10*3/uL (0.0-0.2); Basophils Percent Auto 0.7 % (0-2); Eosinophils Absolute Auto 0.6 X10*3/uL (0.0-0.4); Eosinophils Percent Auto 4.5 % (0-4); Hematocrit 36.5 % (37.0-47.0); Hemoglobin 12.3 g/dl (12.0-16.0); Imm Gran Abs Auto 0.03 X10*3/uL (0.00-0.03); Imm Gran Pct Auto 0.2 % (0.0-0.4); Lymphocytes Absolute Auto 3.4 X10*3/uL (1.2-4.9); Lymphocytes Percent Auto 24.8 % (20-40); Mean Corpuscular HGB Conc 33.7 g/dl (31.0-35.0); Mean Corpuscular Hemoglobin 33.3 pg (27.0-33.0); Mean Corpuscular Volume 98.9 fL (80.0-98.0); Mean Platelet Volume 9.2 fL (9.4-12.3); Monocytes Absolute Auto 1.4 X10*3/uL (0.1-1.2); Monocytes Percent Auto 10.2 % (2-11); Neutrophils Absolute Auto 8.1 x10*3/uL (2.0-8.3); Neutrophils Percent Auto 59.6 % (45-73); Platelet Count 292 X10*3/uL (160-400); Red Blood Count 3.69 X10*6/uL (4.20-5.50); Red Cell Distribution Width 12.9 % (11.0-16.0); White Blood Count 13.7 X10*3/uL (4.8-10.8)
[2023-06-17 22:43] VITALS: BP 130/75; PULSE 108; RESP 18; TEMP 36.4; O2SAT 94
[2023-06-17 22:45] LABS: Alanine Aminotransferase 15 U/L (0-31); Albumin Level 4.1 g/dL (3.5-5.0); Alkaline Phosphatase 88 U/L (39-117); Anion Gap 15 (12-20); Aspartate Amino Transferase 39 U/L (5-31); Bilirubin Total 0.2 mg/dL (0.0-1.0); Blood Urea Nitrogen 18 mg/dL (9-16); Calcium 9.6 mg/dL (8.4-10.2); Carbon Dioxide 26 mmol/L (22-29); Chloride 105 mmol/L (96-108); Creatinine Clr Calc Pharmacy 41.8; Estimated Glomerular Filt Rate 41; Ethanol < 10 mg/dL; Glucose Random 132 mg/dL (60-115); Potassium 3.6 mmol/L (3.3-5.1); Sodium 142 mmol/L (135-145); Total Protein 7.2 g/dL (6.5-8.0)
--- NOTE | 2023-06-17 23:45 | PC.NURSE ---
PT transerred to main ED 6h as she reports she uses supplemental oxygen at night for COPD 2L NC. hand off and report given to MARGO Alfonso.
[2023-06-17 23:55] VITALS: BP 127/68; PULSE 83; RESP 12; O2SAT 97
[2023-06-18] MEDS: hydrOXYzine HCL 25 MG TABLET PO (00:59)
[2023-06-18 02:00] VITALS: BP 134/71; PULSE 78; RESP 16; O2SAT 98
[2023-06-18 03:19] LABS: Appearance Urine Clear; Color Urine Yellow; Glucose Urine UA Negative (Negative); Leukocyte Esterase Urine Negative (Negative); Nitrite Urine Negative (Negative); Specific Gravity - Urine >= 1.030 (1.005-1.025); UMIC TRIGGER UACC YES; Urine Blood Trace (Negative); Urine Ketones Trace mg/dL (Negative); Urine Protein Trace mg/dL (Neg-Trace)
[2023-06-18 03:24] LABS: Bacteria Urine 1+ (None Seen); Hyaline Casts Urine 0-2 /LPF (0-2); WBC Urine 0-5 /HPF (0-5)
[2023-06-18 04:00] VITALS: BP 132/57; PULSE 77; RESP 16; O2SAT 96
--- NOTE | 2023-06-18 06:04 | PC.NURSE ---
Resumed care at 0545. PT transferred back to POD from main ED. RN reports PT did not sleep while in main ED. One time dose of hydroxyzine given for anxiety. Although med rec completed, orders not submitted. Notified charge nurse and provider. Awaiting new orders.
[2023-06-18] MEDS: Atorvastatin Calcium 10 MG TABLET PO (08:17)
[2023-06-18] MEDS: OLANZapine ODT 10 MG TAB.RAPDIS TRANSLINGU (08:17)
--- NOTE | 2023-06-18 08:21 | PC.NURSE ---
pt up and pacing in and out of her room all morning, involved in self dialogue, pt came out of her room without pants and was redirectable back to room, pt did not sleep last night and case discussed with Dr Abraham, labs and meds ordered as well as a chest x ray. pt medicated as ordered, pt stated she took her meds but clearly still had something in her mouth, she still had the zyprexa in her mouth, she then took more water and appeared to have swallowed the med but she also had made a quick hand movement to her mouth but did not appear to have anything in her hand.
--- NOTE | 2023-06-18 08:21 | PHA.MEDREC ---
Pharmacy Consult ? Medication Reconciliation Pharmacy has completed the medication reconciliation. Spoke to patient in regards to symbicort, levothyroxine and omeprazole. Patient was a little disoriented and wasn't sure 100% about her medications. She said she takes symbicort twice a day, levothyroxine is 157 mcg (??) (so will have to go off of pharmacy claims that she has been filling 150 mcg since june 2022), and she only takes 1 capsule of omeprazole a day unless she is really nauseous.
[2023-06-18 08:38] LABS: VBG Base Excess 0.9 mmol/L; VBG HCO3 25 mmol/L (22-26); VBG pCO2 40 mmHg; VBG pO2 98 mmHg
[2023-06-18 08:39] LABS: Venous Blood Gas Refer to POC result
[2023-06-18 08:41] LABS: Ammonia 25 umol/L (13-55)
[2023-06-18] MEDS: Omeprazole 20 MG CAPSULE.DR PO (08:58)
[2023-06-18] MEDS: Levothyroxine Sodium 150 MCG TABLET PO (08:58)
[2023-06-18] MEDS: Fluticasone/Vilanterol 200/25 BLST.W.DEV 1 PUFF INHALE (08:59)
[2023-06-18 09:11] LABS: TSH reflex Free T4 0.08 uIU/mL (0.32-4.0)
[2023-06-18 09:43] LABS: Free T4 (Free Thyroxine) 1.24 ng/dL (0.71-1.85)
[2023-06-18 10:06] VITALS: RESP 15
[2023-06-18] MEDS: hydrOXYzine HCL 50 MG TABLET PO (10:40)
--- NOTE | 2023-06-18 11:44 | P.CNPS_ITS ---
History of Present Illness Date of Service: 06/18/2023 Chief Complaint: ANXIETY/CRISIS,HALLUCINATIONS,SEEN EARLIER PER EMS Reason for Consult: delirium Requesting physician: Wendie Abraham Discussed with referring provider: Yes Sources of Information: patient interviewed, chart reviewed and crisis/core team assessment reviewed HPI Narrative: Mrs. Decker is a 63 year-old woman hx of depression who was brought to [facility] due to increase confusion and paranoia. Pt apparently had been on clonazepam 2mg po TID and xanax 2mg po TID for decade and recently her detention psychiatrist retired and her care transferred to new psychiatrist. Per [facility] last rx for clonazepam 2mg po TID and xanax 2mg po TID was given 04/29--> no over rx given and unclear if pt was advised to stop after last refill. Pt presents with very poor attention, not oriented to place, pointing at things she is seeing which are not there. Her speech is very disorganized and mostly unintelligible. Medical work up include- CBC which shows leukocytosis, chronic macrocitic anemia. TSH is low 0.08, but T3 1.27. UA shows blood, no leukocites nor nitrites. chest X-ray negative for acute findings. She is afebrile. No SOB or respiratory distress. [facility] Medical History COPD (chronic obstructive pulmonary disease) Hypothyroid Bipolar 1 disorder Surgical History History of carpal tunnel surgery H/O shoulder surgery Diagnostics Vital Signs (24Hr): Vital Signs - 24 hr 06/17/23 20:49 06/17/23 22:43 06/17/23 23:55 Temperature 97.5 F 97.5 F Pulse Rate 108 H 108 H 83 Respiratory Rate 18 18 12 Blood Pressure 130/75 130/75 127/68 Pulse Oximetry 94 94 97 Oxygen Delivery Method Room Air Room Air Nasal Cannula Oxygen Flow Rate 2 06/18/23 02:00 06/18/23 04:00 06/18/23 10:06 Temperature Pulse Rate 78 77 Respiratory Rate 16 16 15 Blood Pressure 134/71 132/57 L Pulse Oximetry 98 96 Oxygen Delivery Method Nasal Cannula Nasal Cannula Oxygen Flow Rate 2 2 BMI result Body Mass Index 25.4 Labs 06/17/23 22:22 06/17/23 22:22 Labs: Laboratory Results - last 48 hr 06/17/23 06/17/23 06/18/23 21:12 22:22 03:10 WBC 13.7 H RBC 3.69 L Hgb 12.3 Hct 36.5 L MCV 98.9 H MCH 33.3 H MCHC 33.7 RDW 12.9 Plt Count 292 MPV 9.2 L Immature Gran % (Auto) 0.2 Neut % (Auto) 59.6 Lymph % (Auto) 24.8 [place] % (Auto) 10.2 Eos % (Auto) 4.5 H Baso % (Auto) 0.7 Lymph # (Auto) 3.4 [place] # (Auto) 1.4 H Eos # (Auto) 0.6 H Baso # (Auto) 0.1 Abs Immat Gran (auto) 0.03 Absolute Neuts (auto) 8.1 Absolute Nucleated RBC 0.000 Nucleated RBC % (auto) 0.0 VBG pH VBG pCO2 VBG pO2 VBG HCO3 VBG O2 Saturation VBG Base Excess Sodium 142 Potassium 3.6 Chloride 105 Carbon Dioxide 26 Anion Gap 15 BUN 18 H Creatinine 1.32 Estim Creat Clear Calc 41.8 Estimated GFR 41 Random Glucose 132 H Calcium 9.6 D Total Bilirubin 0.2 AST 39 H ALT 15 Alkaline Phosphatase 88 Ammonia Total Protein 7.2 Albumin 4.1 TSH Free T4 Urine Color Yellow Urine Appearance Clear Urine pH 6.0 Ur Specific [place] >= 1.030 H Urine Protein Trace Urine Glucose (UA) Negative Urine Ketones Trace Urine Blood Trace H Urine Nitrite Negative Ur Leukocyte Esterase Negative Urine RBC 6-10 H Urine WBC 0-5 Ur Squamous Epith Cells 3-5 Urine Bacteria 1+ Hyaline Casts 0-2 Urine Opiates Screen Not Detected Urine Fentanyl Screen Not Detected Ur Barbiturates Screen Not Detected Ur Phencyclidine Scrn Not Detected Ur Amphetamines Screen Not Detected U Benzodiazepines Scrn Not Detected Urine Cocaine Screen Not Detected U Marijuana (THC) Screen POSITIVE H Ethyl Alcohol < 10 06/18/23 06/18/23 06/18/23 08:26 08:27 08:32 WBC RBC Hgb Hct MCV MCH MCHC RDW Plt Count MPV Immature Gran % (Auto) Neut % (Auto) Lymph % (Auto) [place] % (Auto) Eos % (Auto) Baso % (Auto) Lymph # (Auto) [place] # (Auto) Eos # (Auto) Baso # (Auto) Abs Immat Gran (auto) Absolute Neuts (auto) Absolute Nucleated RBC Nucleated RBC % (auto) VBG pH 7.40 VBG pCO2 40 VBG pO2 98 VBG HCO3 25 VBG O2 Saturation 100.0 VBG Base Excess 0.9 Sodium Potassium Chloride Carbon Dioxide Anion Gap BUN Creatinine Estim Creat Clear Calc Estimated GFR Random Glucose Calcium Total Bilirubin AST ALT Alkaline Phosphatase Ammonia 25 Total Protein Albumin TSH 0.08 L Free T4 1.24 Urine Color Urine Appearance Urine pH Ur Specific [place] Urine Protein Urine Glucose (UA) Urine Ketones Urine Blood Urine Nitrite Ur Leukocyte Esterase Urine RBC Urine WBC Ur Squamous Epith Cells Urine Bacteria Hyaline Casts Urine Opiates Screen Urine Fentanyl Screen Ur Barbiturates Screen Ur Phencyclidine Scrn Ur Amphetamines Screen U Benzodiazepines Scrn Urine Cocaine Screen U Marijuana (THC) Screen Ethyl Alcohol Imaging Radiology Impressions: ITS Impressions Chest X-Ray 06/18/23 09:23 IMPRESSION: No radiographically evident acute pulmonary abnormalities. Mental Status Exam Mental Status Exam Narrative: Appearance: wearing hospital gown, intrusive, poor attention, in NAD Behavior: difficult to engage due to poor attention and hyperactivity Speech: unintelligible Insight/judgment: impaired x 2 Cog/memory: alert, not oriented to situation Medications Medications Current Medications Atorvastatin Calcium (Atorvastatin Calcium 10 Mg Tablet) 10 mg PO DAILY [facility] Last Admin: 06/18/23 08:17 Dose: 10 mg Clonazepam (Clonazepam 1 Mg Tablet) 1 mg PO BID [facility] Fluticasone/Vilanterol (Fluticasone/Vilanterol 200/25 Blst.W.Dev) 1 puff INHALE DAILY [facility] Last Admin: 06/18/23 08:59 Dose: 1 puff Lamotrigine (Lamotrigine 100 Mg Tablet) 200 mg PO BEDTIME [facility] Levothyroxine Sodium (Levothyroxine Sodium 150 Mcg Tablet) 150 mcg PO DAILY [facility] Last Admin: 06/18/23 08:58 Dose: 150 mcg Omeprazole (Omeprazole 20 Mg Capsule.Dr) 20 mg PO DAILY [facility] Last Admin: 06/18/23 08:58 Dose: 20 mg Allergies Allergies Allergy/AdvReac Type Severity Reaction Status Date / Time acetaminophen [From VICODIN] Allergy Unknown VOMITTING Verified 05/06/23 13:05 hydrocodone [Vicodin] Allergy Unknown nausea and Verified 05/06/23 13:05 vomiting From VICODIN Allergy Unknown VOMITTING Uncoded 05/06/23 13:05 Assessment & Plan Assessment & Plan (1) Delirium due to another medical condition, acute, hyperactive: Status: Acute Code(s): F05 - Delirium due to known physiological condition Plan Pt currently presents with hyperactive delirium marked by very poor attention, disorientation, seeing things that are not there, grabbing things that are not there with grossly unintelligible speech. - differential dx include delirium due to benzo withdrawal, given no overt overt cause. Held levothyroine due to TSH low 0.08. She is tachycardic, will get EKG. will start pt on clonazepam 1mg po BID--> although may need higher doses given that she was for years on clonazepam 2mg po TID, xanax 2mg po TID. Total time managing care of this patient today ____ minutes.
[2023-06-18 11:50] VITALS: BP 134/74; PULSE 123; TEMP 36.4; O2SAT 95
[2023-06-18] MEDS: clonazePAM 1 MG TABLET PO ×3 (11:54→20:05)
[2023-06-18 14:16] LABS: COVID-19 Test Negative (Negative); IDNOW Serial# BCCEAD1C
[2023-06-18] MEDS: HaloperidoL 5 MG TABLET PO (15:21)
[2023-06-18 16:53] VITALS: BP 133/86; PULSE 98; RESP 18; O2SAT 94
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
[2023-06-18] MEDS: LORazepam 2 MG/ML VIAL IM (19:19)
[2023-06-18] MEDS: Haloperidol Lactate 5 MG/ML VIAL IM (19:19)
[2023-06-18] MEDS: lamoTRIgine 100 MG TABLET 200 MG PO (20:05)
--- NOTE | 2023-06-19 08:03 | PC.NURSE ---
assumed care of pt at 0700. pt sleeping cassie, rr even/unlabored. t/w advised by Dr. Abraham to allow pt to sleep. can wait to do vitals, EKG, and medications until noon.
--- NOTE | 2023-06-19 08:17 | ECG_ITS ---
Test Reason : CHECK PROLONG QT Blood Pressure : / mmHG Vent. Rate : 081 BPM Atrial Rate : 081 BPM P-R Int : 136 ms QRS Dur : 074 ms QT Int : 412 ms P-R-T Axes : 072 015 030 degrees QTc Int : 478 ms Artifact in tracing Normal sinus rhythm Nonspecific ST and T wave abnormality Abnormal ECG When compared with ECG of 07-JUN-2012 13:48, T wave inversion now evident in Lateral leads Referred By: Wendie Abraham Electronically Signed By:JAMES KARIMI
--- NOTE | 2023-06-19 09:26 | PC.NURSE ---
pt found to be sating 88% on room air while sleeping. pt is supposed to be wearing 2L O2 while sleeping. pt placed on 2L O2 via NC, using wheelchair O2 tank. 1:1 sitter at bedside for pt safety. pt still sleeping soundly. rr even/unlabored. plan of care ongoing.
--- NOTE | 2023-06-19 10:14 | PC.NURSE ---
assumed care of pt at 0700. pt sleeping cassie, rr even/unlabored. t/w advised by Dr. Abraham to allow pt to sleep. do not wake up for vitals, EKG, or medications. pt can wait until noon.
--- NOTE | 2023-06-19 10:47 | PC.NURSE ---
pt continues to stay asleep. turned on left side. NC still in place. pt receiving 2L O2. rr even/unlabored. 1:1 sitter at bedside.
[2023-06-19] MEDS: Omeprazole 20 MG CAPSULE.DR PO (11:14)
[2023-06-19] MEDS: Atorvastatin Calcium 10 MG TABLET PO (11:14)
[2023-06-19] MEDS: clonazePAM 1 MG TABLET PO (11:14)
[2023-06-19 11:24] VITALS: BP 138/77; PULSE 122; RESP 16; TEMP 36.9; O2SAT 92
--- NOTE | 2023-06-19 11:27 | PC.NURSE ---
Assumed care of patient at 1100, pt woke up around 1110. Calm and cooperative, appears to be doing much better than previous notes. Per pervious RN notes, patient was agitated, AH/VH and not easily redirectable. Today, pt wakes up, slightly disoriented, unsure of where she is but is participating in conversation, does not appear to be having any AH/VH. took medications, participated in vitals
[2023-06-19 12:18] VITALS: PULSE 87; RESP 16
--- NOTE | 2023-06-19 15:29 | PM.PSYCN ---
History of Present Illness Date of Service: 06/19/2023 Chief Complaint: ANXIETY/CRISIS,HALLUCINATIONS,SEEN EARLIER PER EMS Reason for Consult: delirium Requesting physician: Wendie Abraham Discussed with referring provider: Yes Sources of Information: patient interviewed, chart reviewed and crisis/core team assessment reviewed HPI Narrative: Interim Hx: pt presents more linear in her thinking. She reports she does not remember what happened yesterday nor how many days she has been in the hospital. She denies SI/HI. No overt hallucinations. But it does appear that delirium related to benzodiazepine withdrawal and most like she may need to stay on clonazepam [place] [employer] although lower doses. Yesterday, she received total of clonazepam 3mg po, ativan 2mg. She also received haldol 5mg BID. She slept through the night. She is currently on clonazepam 1mg po BID--> continue to monitor benzo withdrawal and adjust dose as needed. Review of Systems Review of Systems Yes all other systems are reviewed and are negative [facility] Medical History COPD (chronic obstructive pulmonary disease) Hypothyroid Bipolar 1 disorder Surgical History History of carpal tunnel surgery H/O shoulder surgery Diagnostics Vital Signs (24Hr): Vital Signs - 24 hr 06/18/23 16:53 06/19/23 11:24 06/19/23 12:18 Temperature 98.4 F Pulse Rate 98 122 H 87 Respiratory Rate 18 16 16 Blood Pressure 133/86 138/77 Pulse Oximetry 94 92 Oxygen Delivery Method Room Air BMI result Body Mass Index 25.4 Labs 06/17/23 22:22 06/17/23 22:22 Labs: Laboratory Results - last 48 hr 06/17/23 06/17/23 06/18/23 21:12 22:22 03:10 WBC 13.7 H RBC 3.69 L Hgb 12.3 Hct 36.5 L MCV 98.9 H MCH 33.3 H MCHC 33.7 RDW 12.9 Plt Count 292 MPV 9.2 L Immature Gran % (Auto) 0.2 Neut % (Auto) 59.6 Lymph % (Auto) 24.8 [place] % (Auto) 10.2 Eos % (Auto) 4.5 H Baso % (Auto) 0.7 Lymph # (Auto) 3.4 [place] # (Auto) 1.4 H Eos # (Auto) 0.6 H Baso # (Auto) 0.1 Abs Immat Gran (auto) 0.03 Absolute Neuts (auto) 8.1 Absolute Nucleated RBC 0.000 Nucleated RBC % (auto) 0.0 VBG pH VBG pCO2 VBG pO2 VBG HCO3 VBG O2 Saturation VBG Base Excess Sodium 142 Potassium 3.6 Chloride 105 Carbon Dioxide 26 Anion Gap 15 BUN 18 H Creatinine 1.32 Estim Creat Clear Calc 41.8 Estimated GFR 41 Random Glucose 132 H Calcium 9.6 D Total Bilirubin 0.2 AST 39 H ALT 15 Alkaline Phosphatase 88 Ammonia Total Protein 7.2 Albumin 4.1 TSH Free T4 Urine Color Yellow Urine Appearance Clear Urine pH 6.0 Ur Specific [place] >= 1.030 H Urine Protein Trace Urine Glucose (UA) Negative Urine Ketones Trace Urine Blood Trace H Urine Nitrite Negative Ur Leukocyte Esterase Negative Urine RBC 6-10 H Urine WBC 0-5 Ur Squamous Epith Cells 3-5 Urine Bacteria 1+ Hyaline Casts 0-2 Urine Opiates Screen Not Detected Urine Fentanyl Screen Not Detected Ur Barbiturates Screen Not Detected Ur Phencyclidine Scrn Not Detected Ur Amphetamines Screen Not Detected U Benzodiazepines Scrn Not Detected Urine Cocaine Screen Not Detected U Marijuana (THC) Screen POSITIVE H Ethyl Alcohol < 10 COVID-19 (RAVI) COVID-19 Clin Com 06/18/23 06/18/23 06/18/23 08:26 08:27 08:32 WBC RBC Hgb Hct MCV MCH MCHC RDW Plt Count MPV Immature Gran % (Auto) Neut % (Auto) Lymph % (Auto) [place] % (Auto) Eos % (Auto) Baso % (Auto) Lymph # (Auto) [place] # (Auto) Eos # (Auto) Baso # (Auto) Abs Immat Gran (auto) Absolute Neuts (auto) Absolute Nucleated RBC Nucleated RBC % (auto) VBG pH 7.40 VBG pCO2 40 VBG pO2 98 VBG HCO3 25 VBG O2 Saturation 100.0 VBG Base Excess 0.9 Sodium Potassium Chloride Carbon Dioxide Anion Gap BUN Creatinine Estim Creat Clear Calc Estimated GFR Random Glucose Calcium Total Bilirubin AST ALT Alkaline Phosphatase Ammonia 25 Total Protein Albumin TSH 0.08 L Free T4 1.24 Urine Color Urine Appearance Urine pH Ur Specific [place] Urine Protein Urine Glucose (UA) Urine Ketones Urine Blood Urine Nitrite Ur Leukocyte Esterase Urine RBC Urine WBC Ur Squamous Epith Cells Urine Bacteria Hyaline Casts Urine Opiates Screen Urine Fentanyl Screen Ur Barbiturates Screen Ur Phencyclidine Scrn Ur Amphetamines Screen U Benzodiazepines Scrn Urine Cocaine Screen U Marijuana (THC) Screen Ethyl Alcohol COVID-19 ([facility]VI) COVID-19 Clin Com 06/18/23 13:53 WBC RBC Hgb Hct MCV MCH MCHC RDW Plt Count MPV Immature Gran % (Auto) Neut % (Auto) Lymph % (Auto) [place] % (Auto) Eos % (Auto) Baso % (Auto) Lymph # (Auto) [place] # (Auto) Eos # (Auto) Baso # (Auto) Abs Immat Gran (auto) Absolute Neuts (auto) Absolute Nucleated RBC Nucleated RBC % (auto) VBG pH VBG pCO2 VBG pO2 VBG HCO3 VBG O2 Saturation VBG Base Excess Sodium Potassium Chloride Carbon Dioxide Anion Gap BUN Creatinine Estim Creat Clear Calc Estimated GFR Random Glucose Calcium Total Bilirubin AST ALT Alkaline Phosphatase Ammonia Total Protein Albumin TSH Free T4 Urine Color Urine Appearance Urine pH Ur Specific [place] Urine Protein Urine Glucose (UA) Urine Ketones Urine Blood Urine Nitrite Ur Leukocyte Esterase Urine RBC Urine WBC Ur Squamous Epith Cells Urine Bacteria Hyaline Casts Urine Opiates Screen Urine Fentanyl Screen Ur Barbiturates Screen Ur Phencyclidine Scrn Ur Amphetamines Screen U Benzodiazepines Scrn Urine Cocaine Screen U Marijuana (THC) Screen Ethyl Alcohol COVID-19 (RAVI) Negative COVID-19 Clin Com See Note Imaging Radiology Impressions: ITS Impressions Chest X-Ray 06/18/23 09:23 IMPRESSION: No radiographically evident acute pulmonary abnormalities. Mental Status Exam Mental Status Exam Narrative: Appearance: wearing hospital gown, much less hyperactive, able to engage with this scientific technical writer, in NAD Behavior: able to engage in conversation Speech:mostly clear, regular rate/rhythm/volume, spontaneous TP: much more linear and coherent TC: feeling confused, not having much recollection as to what was going on yesterday or day prior Mood: confused' Affect: congruent VH/AH: denies Delusions: no overt signs Insight/judgment: improving x 2. Cog/memory: alert, orientation improving as delirum clears up Medications Medications Current Medications Atorvastatin Calcium (Atorvastatin Calcium 10 Mg Tablet) 10 mg PO DAILY [facility] Last Admin: 06/19/23 11:15 Dose: Not Given Clonazepam (Clonazepam 1 Mg Tablet) 1 mg PO BID [facility] Last Admin: 06/19/23 11:15 Dose: Not Given Fluticasone/Vilanterol (Fluticasone/Vilanterol 200/25 Blst.W.Dev) 1 puff INHALE DAILY [facility] Last Admin: 06/19/23 11:32 Dose: Not Given Lamotrigine (Lamotrigine 100 Mg Tablet) 200 mg PO BEDTIME [facility] Last Admin: 06/18/23 20:05 Dose: 200 mg Levothyroxine Sodium (Levothyroxine Sodium 150 Mcg Tablet) 150 mcg PO DAILY [facility] Last Admin: 06/18/23 08:58 Dose: 150 mcg Omeprazole (Omeprazole 20 Mg Capsule.Dr) 20 mg PO DAILY [facility] Last Admin: 06/19/23 11:15 Dose: Not Given Allergies Allergies Allergy/AdvReac Type Severity Reaction Status Date / Time acetaminophen [From VICODIN] Allergy Unknown VOMITTING Verified 05/06/23 13:05 hydrocodone [Vicodin] Allergy Unknown nausea and Verified 05/06/23 13:05 vomiting From VICODIN Allergy Unknown VOMITTING Uncoded 05/06/23 13:05 Assessment & Plan Assessment & Plan (1) Delirium due to another medical condition, acute, hyperactive: Status: Acute Code(s): F05 - Delirium due to known physiological condition Plan Pt currently presents with hyperactive delirium marked by very poor attention, disorientation, seeing things that are not there, grabbing things that are not there with grossly unintelligible speech. 06/19 pt presents much more clear after receiving total of clonazepam 3mg and ativan 2mg yesterday in addition to haldol 5mg x 2. Confirmation that delirum most likely related to benzo withdrawal. She may not be able to come off completely from benzos (for decades she was on clonazepam 2mg TID in addition to xanax 2mg po TID). She is currently on clonazepam 1mg po BID--> monitor for s/s of delirium or worsening mentation and adjust dose of benzodiazepine as needed. Still needs inpatient level of care for further stabilization and prevention of quick decompensation. Total time managing care of this patient today ____ minutes.
[2023-06-19 16:05] VITALS: BP 118/73; PULSE 105; RESP 16; TEMP 36.8; O2SAT 95
--- NOTE | 2023-06-19 17:23 | PC.NURSE ---
PT laying in bed, eyes closed and appears to be sleeping. Respirations even and unlabored. Awaiting bed assignment.
[2023-06-19 22:05] VITALS: BP 136/71; PULSE 110; RESP 18; TEMP 36.4; O2SAT 92
[2023-06-20] MEDS: clonazePAM 1 MG TABLET PO ×3 (01:15→21:29)
[2023-06-20] MEDS: hydrOXYzine HCL 25 MG TABLET PO (01:15)
[2023-06-20] MEDS: lamoTRIgine 100 MG TABLET 200 MG PO ×2 (01:15→21:29)
[2023-06-20 05:57] VITALS: BMI 25.7
[2023-06-20 06:00] VITALS: BP 121/73; PULSE 83; RESP 16; TEMP 36.5; O2SAT 87
--- NOTE | 2023-06-20 06:14 | PC.ADMIT ---
Pt is a 63 yo female presented to [facility] via EMS. Pt arrived on M5 at 2135 on 06/19/23. Pt was at son's house and was acting disorganized and endorsing AH and VH and bizarre behaviors. Pt's son encouraged her to be assessed at the hospital. Pt had been cleared by psych at [facility] on 06/16 and 06/17. Pt medical issues are hyperthyroidism, COPD, asthma. Pt is on 2L 02 at . Pt presents as pleasant and cooperative. Pt was noted during her crisis assessment to have stated I am here because I have maggots in my kali . Upon arrival on unit pt was not hallucinating. Pt states that she believes that she has been having issues due to her medication changes. She states that she has had 3 meds change in recent weeks. Pt states that her psychiatrist retired and she had been prescribing her high amounts of benzo's. Pt has been in the process of tapering off of them. Provider cotton broker notified and orders obtained. Pt place on 15 min checks for safety. Pt feels safe in hospital.
[2023-06-20 08:04] LABS: Cholesterol 153 mg/dL (<200); HDL Cholesterol 54 mg/dL (>40); LDL Cholesterol Calculated 75 mg/dL (<100); Magnesium 2.3 mg/dL (1.6-2.6); Triglycerides 122 mg/dL (<150)
[2023-06-20 08:20] LABS: Free T4 (Free Thyroxine) 1.21 ng/dL (0.71-1.85); Thyroid Stimulating Hormone 0.06 uIU/mL (0.32-4.0)
[2023-06-20 08:25] LABS: Estimated Average Glucose 103 mg/dL; Hemoglobin A1c % 5.2 % (<6.0)
[2023-06-20 08:33] LABS: Folate 7.8 ng/mL (> or = 4.0); Vitamin B12 532 pg/mL (200-900)
[2023-06-20] MEDS: Omeprazole 20 MG CAPSULE.DR PO (09:13)
[2023-06-20] MEDS: Atorvastatin Calcium 10 MG TABLET PO (09:13)
[2023-06-20 09:36] VITALS: O2SAT 90
[2023-06-20] MEDS: Fluticasone/Vilanterol 200/25 BLST.W.DEV 1 PUFF INHALE (13:58)
[2023-06-20 16:39] VITALS: BP 129/81; PULSE 83; RESP 20; TEMP 36.5; O2SAT 94
--- NOTE | 2023-06-20 23:16 | HO.PSYCHPN ---
Subjective Subjective Date of Service: 06/20/23 Reason For Visit: Bipolar disorder,AH,VH Interim History: Patient is on home oxygen 2 L, which she received in the ED, but has not received here on unit. Ordered consult for respiratory therapists but no one on for holiday weekend, O2 sats at high 80%s so oxygen ordered. Patient expressed appreciattion, she had been feeling SOB. She was seen in her room, with 1:1, resting now. She has no complaints, she is agreeable to meeting up in the AM. Medication Compliance: Yes Side effects from medications: No Mental Status Exam Mental Status Exam Narrative: Alert, oriented, in no acute distress. Calm, cooperative, engaged. No psychomotor agitation or neurovegetative retardation. Eye contact maintained. Mood depressed, affect constricted. Speech normal. Thought process linear, coherent. Thought content related to stressors, transient hopelessness, denies SI or HI. No paranoia or delusional content elicited. No evidence of psychosis. Insight and judgment impaired. Diagnostics Vital Signs (24Hr): Vital Signs - 24 hr 06/20/23 06:00 06/20/23 09:36 06/20/23 16:39 Temperature 97.7 F 97.7 F Pulse Rate 83 83 Respiratory Rate 16 20 Blood Pressure 121/73 129/81 Pulse Oximetry 87 L 90 L 94 Oxygen Delivery Method Room Air Room Air Nasal Cannula Oxygen Flow Rate 2 BMI result Body Mass Index 25.7 Labs 06/17/23 22:22 06/17/23 22:22 Labs: Laboratory Results - last 48 hr 06/20/23 07:22 Estimat Average Glucose 103 Hemoglobin A1c % 5.2 Magnesium 2.3 Triglycerides 122 Cholesterol 153 LDL Cholesterol, Calc 75 HDL Cholesterol 54 Vitamin B12 532 Folate 7.8 TSH 0.06 L Free T4 1.21 Imaging Radiology Impressions: ITS Impressions Chest X-Ray 06/18/23 09:23 IMPRESSION: No radiographically evident acute pulmonary abnormalities. Medications Medications Current Medications Al Hydroxide/Mg Hydroxide (Magnesium Hydrox/Alum Hydrox 30 Ml Oral.Susp) 30 ml PO Q6H PRN PRN Reason: Heartburn/Nausea Atorvastatin Calcium (Atorvastatin Calcium 10 Mg Tablet) 10 mg PO DAILY [facility] Last Admin: 06/20/23 09:13 Dose: 10 mg Clonazepam (Clonazepam 1 Mg Tablet) 1 mg PO BID [facility] Last Admin: 06/20/23 21:29 Dose: 1 mg Fluticasone/Vilanterol (Fluticasone/Vilanterol 200/25 Blst.W.Dev) 1 puff INHALE DAILY [facility] Last Admin: 06/20/23 13:58 Dose: 1 puff Hydroxyzine HCl (Hydroxyzine Hcl 25 Mg Tablet) 25 mg PO Q6H PRN PRN Reason: Anxiety Last Admin: 06/20/23 01:15 Dose: 25 mg Lamotrigine (Lamotrigine 100 Mg Tablet) 200 mg PO BEDTIME [facility] Last Admin: 06/20/23 21:29 Dose: 200 mg Levothyroxine Sodium (Levothyroxine Sodium 150 Mcg Tablet) 150 mcg PO DAILY [facility] Last Admin: 06/18/23 08:58 Dose: 150 mcg Magnesium Hydroxide (Milk Of Magnesia 30 Ml Oral.Susp) 30 ml PO DAILY PRN PRN Reason: Constipation Omeprazole (Omeprazole 20 Mg Capsule.Dr) 20 mg PO DAILY [facility] Last Admin: 06/20/23 09:13 Dose: 20 mg Trazodone HCl (Trazodone Hcl 50 Mg Tablet) 50 mg PO BEDTIME MRX1 PRN PRN Reason: Insomnia Allergies Allergies Allergy/AdvReac Type Severity Reaction Status Date / Time acetaminophen [From VICODIN] Allergy Unknown VOMITTING Verified 05/06/23 13:05 hydrocodone [Vicodin] Allergy Unknown nausea and Verified 05/06/23 13:05 vomiting From VICODIN Allergy Unknown VOMITTING Uncoded 05/06/23 13:05 Assessment & Plan Assessment & Plan (1) Delirium due to another medical condition, acute, hyperactive: Status: Resolved Code(s): F05 - Delirium due to known physiological condition Plan Pt currently presents with hyperactive delirium marked by very poor attention, disorientation, seeing things that are not there, grabbing things that are not there with grossly unintelligible speech. 06/19 pt presents much more clear after receiving total of clonazepam 3mg and ativan 2mg yesterday in addition to haldol 5mg x 2. Confirmation that delirum most likely related to benzo withdrawal. She may not be able to come off completely from benzos (for decades she was on clonazepam 2mg TID in addition to xanax 2mg po TID). She is currently on clonazepam 1mg po BID--> monitor for s/s of delirium or worsening mentation and adjust dose of benzodiazepine as needed. Still needs inpatient level of care for further stabilization and prevention of quick decompensation. Reason for continued inpatient stay Substantial Risk for: inability to function, rapid decompensation and med/psych decompensation Time Spent With Patient Time: Total time managing care of this patient today ____ minutes.
[2023-06-21 06:00] VITALS: BP 148/70; PULSE 76; RESP 18; TEMP 36.1; O2SAT 93
[2023-06-21] MEDS: Ibuprofen 400 MG TABLET PO ×2 (08:45→16:18)
[2023-06-21] MEDS: Atorvastatin Calcium 10 MG TABLET PO (08:46)
[2023-06-21] MEDS: Omeprazole 20 MG CAPSULE.DR PO (08:46)
[2023-06-21] MEDS: clonazePAM 1 MG TABLET PO ×2 (08:46→21:28)
[2023-06-21] MEDS: Fluticasone/Vilanterol 200/25 BLST.W.DEV 1 PUFF INHALE (09:14)
[2023-06-21 18:00] VITALS: BP 170/74; PULSE 63; RESP 18; TEMP 37; O2SAT 98
[2023-06-21] MEDS: lamoTRIgine 100 MG TABLET 200 MG PO (21:28)
--- NOTE | 2023-06-21 22:54 | P.PNPSI_ITS ---
Subjective Subjective Date of Service: 06/21/23 Reason For Visit: Bipolar disorder,AH,VH Interim History: Patient reports things are going fine. Quiet, keeping to herself. Did not see much out on the unit today.? Mood is ok, still low, some anxiety. Medication compliant. Denies any adverse effects. Sleep, appetite are fair. Denies any SI HI AVH. Mental Status Exam Mental Status Exam Narrative: Alert, oriented, in no acute distress. Calm, cooperative, engaged. No psychomotor agitation or neurovegetative retardation. Eye contact maintained. Mood depressed, affect constricted. Speech normal. Thought process linear, coherent. Thought content related to stressors, transient hopelessness, denies SI or HI. No paranoia or delusional content elicited. No evidence of psychosis. Insight and judgment impaired. Diagnostics Vital Signs (24Hr): Vital Signs - 24 hr 06/21/23 06:00 06/21/23 18:00 Temperature 97 F 98.6 F Pulse Rate 76 63 Respiratory Rate 18 18 Blood Pressure 148/70 H 170/74 H Pulse Oximetry 93 98 Oxygen Delivery Method Nasal Cannula Room Air Oxygen Flow Rate 2 BMI result Body Mass Index 25.7 Labs 06/17/23 22:22 06/17/23 22:22 Labs: Laboratory Results - last 48 hr 06/20/23 07:22 Estimat Average Glucose 103 Hemoglobin A1c % 5.2 Magnesium 2.3 Triglycerides 122 Cholesterol 153 LDL Cholesterol, Calc 75 HDL Cholesterol 54 Vitamin B12 532 Folate 7.8 TSH 0.06 L Free T4 1.21 Imaging Radiology Impressions: ITS Impressions Chest X-Ray 06/18/23 09:23 IMPRESSION: No radiographically evident acute pulmonary abnormalities. Medications Medications Current Medications Al Hydroxide/Mg Hydroxide (Magnesium Hydrox/Alum Hydrox 30 Ml Oral.Susp) 30 ml PO Q6H PRN PRN Reason: Heartburn/Nausea Atorvastatin Calcium (Atorvastatin Calcium 10 Mg Tablet) 10 mg PO DAILY [facility] Last Admin: 06/21/23 08:46 Dose: 10 mg Clonazepam (Clonazepam 1 Mg Tablet) 1 mg PO BID [facility] Last Admin: 06/21/23 21:28 Dose: 1 mg Fluticasone/Vilanterol (Fluticasone/Vilanterol 200/25 Blst.W.Dev) 1 puff INHALE DAILY [facility] Last Admin: 06/21/23 09:14 Dose: 1 puff Hydroxyzine HCl (Hydroxyzine Hcl 25 Mg Tablet) 25 mg PO Q6H PRN PRN Reason: Anxiety Last Admin: 06/20/23 01:15 Dose: 25 mg Ibuprofen (Ibuprofen 400 Mg Tablet) 400 mg PO Q6H PRN PRN Reason: Pain, Moderate(Pain Scale 4-6) Last Admin: 06/21/23 16:18 Dose: 400 mg Lamotrigine (Lamotrigine 100 Mg Tablet) 200 mg PO BEDTIME [facility] Last Admin: 06/21/23 21:28 Dose: 200 mg Levothyroxine Sodium (Levothyroxine Sodium 150 Mcg Tablet) 150 mcg PO DAILY [facility] Last Admin: 06/18/23 08:58 Dose: 150 mcg Magnesium Hydroxide (Milk Of Magnesia 30 Ml Oral.Susp) 30 ml PO DAILY PRN PRN Reason: Constipation Omeprazole (Omeprazole 20 Mg Capsule.Dr) 20 mg PO DAILY [facility] Last Admin: 06/21/23 08:46 Dose: 20 mg Trazodone HCl (Trazodone Hcl 50 Mg Tablet) 50 mg PO BEDTIME MRX1 PRN PRN Reason: Insomnia Allergies Allergies Allergy/AdvReac Type Severity Reaction Status Date / Time acetaminophen [From VICODIN] Allergy Unknown VOMITTING Verified 05/06/23 13:05 hydrocodone [Vicodin] Allergy Unknown nausea and Verified 05/06/23 13:05 vomiting From VICODIN Allergy Unknown VOMITTING Uncoded 05/06/23 13:05 Assessment & Plan Assessment & Plan (1) Delirium due to another medical condition, acute, hyperactive: Status: Resolved Code(s): F05 - Delirium due to known physiological condition Plan Pt currently presents with hyperactive delirium marked by very poor attention, disorientation, seeing things that are not there, grabbing things that are not there with grossly unintelligible speech. 06/19 pt presents much more clear after receiving total of clonazepam 3mg and ativan 2mg yesterday in addition to haldol 5mg x 2. Confirmation that delirum most likely related to benzo withdrawal. She may not be able to come off completely from benzos (for decades she was on clonazepam 2mg TID in addition to xanax 2mg po TID). She is currently on clonazepam 1mg po BID--> monitor for s/s of delirium or worsening mentation and adjust dose of benzodiazepine as needed. Still needs inpatient level of care for further stabilization and prevention of quick decompensation. Reason for continued inpatient stay Substantial Risk for: inability to function, rapid decompensation and med/psych decompensation Time Spent With Patient Time: Total time managing care of this patient today ____ minutes.
[2023-06-22] MEDS: Milk of Magnesia 30 ML ORAL.SUSP PO (01:47)
[2023-06-22] MEDS: Atorvastatin Calcium 10 MG TABLET PO (08:19)
[2023-06-22] MEDS: clonazePAM 1 MG TABLET PO ×2 (08:19→21:45)
[2023-06-22] MEDS: Omeprazole 20 MG CAPSULE.DR PO (08:19)
[2023-06-22 08:35] VITALS: BP 137/71; PULSE 73; RESP 16; TEMP 36.3; O2SAT 98
[2023-06-22] MEDS: Fluticasone/Vilanterol 200/25 BLST.W.DEV 1 PUFF INHALE (09:16)
[2023-06-22] MEDS: Ibuprofen 400 MG TABLET PO (10:32)
[2023-06-22] MEDS: hydrOXYzine HCL 25 MG TABLET PO (16:31)
[2023-06-22] MEDS: Magnesium Hydrox/Alum Hydrox 30 ML ORAL.SUSP PO (17:28)
[2023-06-22 18:00] VITALS: BP 126/64; PULSE 80; RESP 16; TEMP 36.9; O2SAT 95
[2023-06-22] MEDS: lamoTRIgine 100 MG TABLET 200 MG PO (21:43)
--- NOTE | 2023-06-22 22:10 | P.PNPSI_ITS ---
Subjective Subjective Date of Service: 06/22/23 Reason For Visit: Bipolar disorder,AH,VH Interim History: Patient was more visible today, sat amongst peers in tv room. Pleasant on approach, no complaints. Expresses gratitude. I vague about details that brought her to hospital. She denies any issues. She was not sure what year it was but was aware that it is the New Year. Mood is okay. Denies any hopelessness or SI. Medication Compliance: Yes Side effects from medications: No Mental Status Exam Mental Status Exam Narrative: Alert, oriented x2, in no acute distress. Calm, cooperative, engaged. No psychomotor agitation or neurovegetative retardation. Eye contact maintained. Mood depressed, affect constricted. Speech normal. Thought process linear, coherent. Thought content related to current situation, denies hopelessness, denies SI or HI. No paranoia or delusional content elicited. No evidence of psychosis. Insight and judgment impaired. Diagnostics Vital Signs (24Hr): Vital Signs - 24 hr 06/22/23 08:35 06/22/23 18:00 Temperature 97.3 F 98.5 F Pulse Rate 73 80 Respiratory Rate 16 16 Blood Pressure 137/71 126/64 Pulse Oximetry 98 95 Oxygen Delivery Method Room Air Nasal Cannula Oxygen Flow Rate 2 BMI result Body Mass Index 25.7 Labs 06/17/23 22:22 06/17/23 22:22 Imaging Radiology Impressions: ITS Impressions Chest X-Ray 06/18/23 09:23 IMPRESSION: No radiographically evident acute pulmonary abnormalities. Medications Medications Current Medications Al Hydroxide/Mg Hydroxide (Magnesium Hydrox/Alum Hydrox 30 Ml Oral.Susp) 30 ml PO Q6H PRN PRN Reason: Heartburn/Nausea Last Admin: 06/22/23 17:28 Dose: 30 ml Atorvastatin Calcium (Atorvastatin Calcium 10 Mg Tablet) 10 mg PO DAILY [facility] Last Admin: 06/22/23 08:19 Dose: 10 mg Clonazepam (Clonazepam 1 Mg Tablet) 1 mg PO BID [facility] Last Admin: 06/22/23 21:45 Dose: 1 mg Fluticasone/Vilanterol (Fluticasone/Vilanterol 200/25 Blst.W.Dev) 1 puff INHALE DAILY [facility] Last Admin: 06/22/23 09:16 Dose: 1 puff Hydroxyzine HCl (Hydroxyzine Hcl 25 Mg Tablet) 25 mg PO Q6H PRN PRN Reason: Anxiety Last Admin: 06/22/23 16:31 Dose: 25 mg Ibuprofen (Ibuprofen 400 Mg Tablet) 400 mg PO Q6H PRN PRN Reason: Pain, Moderate(Pain Scale 4-6) Last Admin: 06/22/23 10:32 Dose: 400 mg Lamotrigine (Lamotrigine 100 Mg Tablet) 200 mg PO BEDTIME [facility] Last Admin: 06/22/23 21:43 Dose: 200 mg Levothyroxine Sodium (Levothyroxine Sodium 150 Mcg Tablet) 150 mcg PO DAILY [facility] Last Admin: 06/18/23 08:58 Dose: 150 mcg Magnesium Hydroxide (Milk Of Magnesia 30 Ml Oral.Susp) 30 ml PO DAILY PRN PRN Reason: Constipation Last Admin: 06/22/23 01:47 Dose: 30 ml Omeprazole (Omeprazole 20 Mg Capsule.Dr) 20 mg PO DAILY [facility] Last Admin: 06/22/23 08:19 Dose: 20 mg Trazodone HCl (Trazodone Hcl 50 Mg Tablet) 50 mg PO BEDTIME MRX1 PRN PRN Reason: Insomnia Allergies Allergies Allergy/AdvReac Type Severity Reaction Status Date / Time acetaminophen [From VICODIN] Allergy Unknown VOMITTING Verified 05/06/23 13:05 hydrocodone [Vicodin] Allergy Unknown nausea and Verified 05/06/23 13:05 vomiting From VICODIN Allergy Unknown VOMITTING Uncoded 05/06/23 13:05 Assessment & Plan Assessment & Plan (1) Delirium due to another medical condition, acute, hyperactive: Status: Resolved Code(s): F05 - Delirium due to known physiological condition Plan Pt currently presents with hyperactive delirium marked by very poor attention, disorientation, seeing things that are not there, grabbing things that are not there with grossly unintelligible speech. 06/19 pt presents much more clear after receiving total of clonazepam 3mg and ativan 2mg yesterday in addition to haldol 5mg x 2. Confirmation that delirum most likely related to benzo withdrawal. She may not be able to come off completely from benzos (for decades she was on clonazepam 2mg TID in addition to xanax 2mg po TID). She is currently on clonazepam 1mg po BID--> monitor for s/s of delirium or worsening mentation and adjust dose of benzodiazepine as needed. Still needs inpatient level of care for further stabilization and prevention of quick decompensation. Reason for continued inpatient stay Substantial Risk for: inability to function, rapid decompensation and med/psych decompensation Time Spent With Patient Time: Total time managing care of this patient today ____ minutes.
[2023-06-23 08:20] VITALS: BP 110/68; PULSE 65; RESP 16; TEMP 36.4; O2SAT 97
[2023-06-23] MEDS: clonazePAM 1 MG TABLET PO ×2 (08:34→20:20)
[2023-06-23] MEDS: Omeprazole 20 MG CAPSULE.DR PO (08:34)
[2023-06-23] MEDS: Atorvastatin Calcium 10 MG TABLET PO (08:34)
[2023-06-23] MEDS: Fluticasone/Vilanterol 200/25 BLST.W.DEV 1 PUFF INHALE (09:11)
--- NOTE | 2023-06-23 10:15 | PC.NURSE ---
NRT--Discussed available NRT options with pt. She states that she is not interested in NRT in the form of patches, gum of lozenges. She states that she is not struggling with cravings and intends to resume cigarette smoking when she is discharged from the hospital.
[2023-06-23] MEDS: Ibuprofen 400 MG TABLET PO (17:09)
--- NOTE | 2023-06-23 17:18 | P.PNPSI_ITS ---
Subjective Subjective Date of Service: 06/23/23 Reason For Visit: Bipolar disorder,AH,VH Subjective Notes: Conditional Voluntary and 3 Day Healthcare Proxy: No Guardianship: No Medical Problems Affecting Mental Status: No Interim History: Met with pt and team- reviewed precipitants to admission and symptoms. Reports a 25+ year history of use of Klonopin/Xanax combination, 6 mg each daily with precipitous withdrawal due to snf of provider. New provider does not prescribe benzodiazepines. Pt reports withdrawl precipitated a delirious response with AH, VH. She reached out for help with [facility] and then found assistance when seen in [facility]. She reports she now feels at baseline and asks for discharge as milieu acuity is frightening to her. She plans to remain with her son in [place] and asks for new referrals. She denies SI, HI, AH, VH or any frightening sx, however, is fearful of other patients in the milieu and their intensity of sx. Psychopharmacology appt scheduled for 07/09/23 with [facility] Counseling. Pt is aware that she may breakthrough on current lowered dosages and discussed crisis plan should this occur. Medication Compliance: Yes Side effects from medications: No Attending Groups: Intermittent Review of Systems Acute medical concerns: No Medical Review of Systems: unchanged Review of Systems Review of Systems Yes all other systems are reviewed and are negative (pt denies today) Mental Status Exam Mental Status Exam Patient Appearance: Appropriate Patient Orientation: Person, Place, Time and Situation Level of Consciousness: Alert Mood Description: Appropriate and Apprehensive Labs Ability to Follow Directions: Good Speech Pattern: Spontaneous Speech Memory Description: Intact Hallucinations: None Delusions: Not Present Thought Process: Intact and Goal Oriented ITS Impressions Judgement: Good Diagnostics Vital Signs (24Hr): Vital Signs - 24 hr 06/22/23 18:00 06/23/23 08:20 Temperature 98.5 F 97.6 F Pulse Rate 80 65 Respiratory Rate 16 16 Blood Pressure 126/64 110/68 Pulse Oximetry 95 97 Oxygen Delivery Method Nasal Cannula Nasal Cannula Oxygen Flow Rate 2 2 BMI result Body Mass Index 25.7 Labs 06/17/23 22:22 06/17/23 22:22 Imaging Radiology Impressions: ITS Impressions Chest X-Ray 06/18/23 09:23 IMPRESSION: No radiographically evident acute pulmonary abnormalities. Medications Medications Current Medications Al Hydroxide/Mg Hydroxide (Magnesium Hydrox/Alum Hydrox 30 Ml Oral.Susp) 30 ml PO Q6H PRN PRN Reason: Heartburn/Nausea Last Admin: 06/22/23 17:28 Dose: 30 ml Last Admin: 06/23/23 08:34 Dose: 10 mg Clonazepam (Clonazepam 1 Mg Tablet) 1 mg PO BID [facility] Last Admin: 06/23/23 08:34 Dose: 1 mg DAILY [facility] Last Admin: 06/23/23 09:11 Dose: 1 puff Ibuprofen (Ibuprofen 400 Mg Tablet) 400 mg PO Q6H PRN PRN Reason: Pain, Moderate(Pain Scale 4-6) Code(s): Lamotrigine (Lamotrigine 100 Mg Tablet) 200 mg PO BEDTIME [facility] Plan Levothyroxine Sodium (Levothyroxine Sodium 150 Mcg Tablet) 150 mcg PO DAILY [facility] Last Admin: 06/18/23 08:58 Dose: 150 mcg Magnesium Hydroxide (Milk Of Magnesia 30 Ml Oral.Susp) 30 ml PO DAILY PRN PRN Reason: Constipation Last Admin: 06/22/23 01:47 Dose: 30 ml Omeprazole (Omeprazole 20 Mg Capsule.Dr) 20 mg PO DAILY [facility] Last Admin: 06/23/23 08:34 Dose: 20 mg Allergies Allergies Allergy/AdvReac Type Severity Reaction Status Date / Time acetaminophen [From VICODIN] Allergy Unknown VOMITTING Verified 05/06/23 13:05
--- NOTE | 2023-06-23 17:18 | HO.PSYCHPN ---
Subjective Subjective Date of Service: 06/23/23 Reason For Visit: Bipolar disorder,AH,VH Subjective Notes: Conditional Voluntary and 3 Day Healthcare Proxy: No Guardianship: No Medical Problems Affecting Mental Status: No Interim History: Met with pt and team- reviewed precipitants to admission and symptoms. Reports a 25+ year history of use of Klonopin/Xanax combination, 6 mg each daily with precipitous withdrawal due to senior care of provider. New provider does not prescribe benzodiazepines. Pt reports withdrawl precipitated a delirious response with AH, VH. She reached out for help with [facility] and then found assistance when seen in [facility]. She reports she now feels at baseline and asks for discharge as milieu acuity is frightening to her. She plans to remain with her son in [place] and asks for new referrals. She denies SI, HI, AH, VH or any frightening sx, however, is fearful of other patients in the milieu and their intensity of sx. Psychopharmacology appt scheduled for 07/09/23 with [facility] Counseling. Pt is aware that she may breakthrough on current lowered dosages and discussed crisis plan should this occur. Medication Compliance: Yes Side effects from medications: No Attending Groups: Intermittent Review of Systems Acute medical concerns: No Medical Review of Systems: unchanged Review of Systems Review of Systems Yes all other systems are reviewed and are negative (pt denies today) Mental Status Exam Mental Status Exam Patient Appearance: Appropriate Patient Orientation: Person, Place, Time and Situation Level of Consciousness: Alert Patient Behavior: Appropriate, Talkative, Cooperative and Good Eye Contact Mood Description: Appropriate and Apprehensive Affect Description: Apprehensive Patient Cognition Impaired: No Ability to Follow Directions: Good Speech Pattern: Spontaneous Speech Memory Description: Intact Hallucinations: None Delusions: Not Present Thought Process: Intact and Goal Oriented Thought Content: positive for Intact and positive for Goal Oriented Depressive Symptoms: Thoughts of /Suicide (denies) Judgement: Good Diagnostics Vital Signs (24Hr): Vital Signs - 24 hr 06/22/23 18:00 06/23/23 08:20 Temperature 98.5 F 97.6 F Pulse Rate 80 65 Respiratory Rate 16 16 Blood Pressure 126/64 110/68 Pulse Oximetry 95 97 Oxygen Delivery Method Nasal Cannula Nasal Cannula Oxygen Flow Rate 2 2 BMI result Body Mass Index 25.7 Labs 06/17/23 22:22 06/17/23 22:22 Imaging Radiology Impressions: ITS Impressions Chest X-Ray 06/18/23 09:23 IMPRESSION: No radiographically evident acute pulmonary abnormalities. Medications Medications Current Medications Al Hydroxide/Mg Hydroxide (Magnesium Hydrox/Alum Hydrox 30 Ml Oral.Susp) 30 ml PO Q6H PRN PRN Reason: Heartburn/Nausea Last Admin: 06/22/23 17:28 Dose: 30 ml Atorvastatin Calcium (Atorvastatin Calcium 10 Mg Tablet) 10 mg PO DAILY [facility] Last Admin: 06/23/23 08:34 Dose: 10 mg Clonazepam (Clonazepam 1 Mg Tablet) 1 mg PO BID [facility] Last Admin: 06/23/23 08:34 Dose: 1 mg Fluticasone/Vilanterol (Fluticasone/Vilanterol 200/25 Blst.W.Dev) 1 puff INHALE DAILY [facility] Last Admin: 06/23/23 09:11 Dose: 1 puff Ibuprofen (Ibuprofen 400 Mg Tablet) 400 mg PO Q6H PRN PRN Reason: Pain, Moderate(Pain Scale 4-6) Last Admin: 06/23/23 17:09 Dose: 400 mg Lamotrigine (Lamotrigine 100 Mg Tablet) 200 mg PO BEDTIME [facility] Last Admin: 06/22/23 21:43 Dose: 200 mg Levothyroxine Sodium (Levothyroxine Sodium 150 Mcg Tablet) 150 mcg PO DAILY [facility] Last Admin: 06/18/23 08:58 Dose: 150 mcg Magnesium Hydroxide (Milk Of Magnesia 30 Ml Oral.Susp) 30 ml PO DAILY PRN PRN Reason: Constipation Last Admin: 06/22/23 01:47 Dose: 30 ml Omeprazole (Omeprazole 20 Mg Capsule.Dr) 20 mg PO DAILY [facility] Last Admin: 06/23/23 08:34 Dose: 20 mg Allergies Allergies Allergy/AdvReac Type Severity Reaction Status Date / Time acetaminophen [From VICODIN] Allergy Unknown VOMITTING Verified 05/06/23 13:05 hydrocodone [Vicodin] Allergy Unknown nausea and Verified 05/06/23 13:05 vomiting escitalopram AdvReac Severe Confusion Verified 06/23/23 10:04 hydroxyzine AdvReac Severe Confusion Verified 06/23/23 10:04 trazodone AdvReac Severe Confusion Verified 06/23/23 10:04 promethazine AdvReac Unknown Confusion Verified 06/23/23 10:04 From VICODIN Allergy Unknown VOMITTING Uncoded 05/06/23 13:05 Assessment & Plan Assessment & Plan (1) Delirium due to another medical condition, acute, hyperactive: Status: Acute Code(s): F05 - Delirium due to known physiological condition Plan Pt currently presents with hyperactive delirium marked by very poor attention, disorientation, seeing things that are not there, grabbing things that are not there with grossly unintelligible speech. 06/19 pt presents much more clear after receiving total of clonazepam 3mg and ativan 2mg yesterday in addition to haldol 5mg x 2. Confirmation that delirum most likely related to benzo withdrawal. She may not be able to come off completely from benzos (for decades she was on clonazepam 2mg TID in addition to xanax 2mg po TID). She is currently on clonazepam 1mg po BID--> monitor for s/s of delirium or worsening mentation and adjust dose of benzodiazepine as needed. Still needs inpatient level of care for further stabilization and prevention of quick decompensation. 06/23/22 -Three day notice filed. -Pt fearful of milieu. -New out pt psychopharm appt scheduled for 07/09/23 with [facility] -Continue to monitor. Pt requests discharge 06/24. Will assess. She plans to live in [place] with her son. Patient educated on: medication risk/benefits and medical condition Informed Consent: understands Reason for continued inpatient stay Substantial Risk for: med/psych decompensation Time Spent With Patient Time: Total time managing care of this patient today ____ minutes.
[2023-06-23 20:15] VITALS: BP 127/68; PULSE 69; TEMP 36.9
[2023-06-23] MEDS: lamoTRIgine 100 MG TABLET 200 MG PO (20:20)
[2023-06-24 08:15] VITALS: BP 112/74; PULSE 70; RESP 16; TEMP 36.3; O2SAT 96
[2023-06-24] MEDS: Ibuprofen 400 MG TABLET PO (08:34)
[2023-06-24] MEDS: Atorvastatin Calcium 10 MG TABLET PO (08:34)
[2023-06-24] MEDS: Omeprazole 20 MG CAPSULE.DR PO (08:34)
[2023-06-24] MEDS: Fluticasone/Vilanterol 200/25 BLST.W.DEV 1 PUFF INHALE (08:35)
--- NOTE | 2023-06-24 10:42 | P.DS_ITS ---
DS: Providers Provider Date of Service: 06/24/23 Date of admission: 06/19/23 19:27 Date of discharge: 06/24/23 Primary care physician: Unknown Physician Admitting clinician: Kristine Galindo Attending physician on admission: Kristine Galindo Attending physician on discharge: Scotty Grant Discharging clinician: Karrie Diaz DS: Diagnosis Discharge Diagnosis (1) Delirium due to another medical condition, acute, hyperactive: Status: Resolved DS: Medications Discharge Medications Home Medications: Home Medications Medication Instructions Recorded Confirmed simvastatin 20 mg tablet 20 mg PO DAILY 08/05/21 06/17/23 omeprazole 20 mg capsule,delayed 20 mg PO DAILY 05/27/22 06/17/23 release budesonide-formoterol HFA 160 2 puff inhalation BID 05/06/23 06/18/23 mcg-4.5 mcg/actuation aerosol inhaler (Symbicort) Previous Rx's Medication Instructions Recorded clonazepam 1 mg tablet 1 mg PO BID #14 tabs 06/24/23 lamotrigine 200 mg tablet 200 mg PO BEDTIME #30 tabs 06/24/23 levothyroxine 150 mcg tablet 150 mcg PO DAILY #0 tabs 06/24/23 Mental Status Exam Mental Status Exam Patient Appearance: Appropriate Patient Orientation: Person, Place, Time and Situation Level of Consciousness: Alert Patient Behavior: Appropriate, Talkative, Cooperative and Good Eye Contact Mood Description: Appropriate and Apprehensive Affect Description: Apprehensive Patient Cognition Impaired: No Ability to Follow Directions: Good Speech Pattern: Spontaneous Speech Memory Description: Intact Hallucinations: None Delusions: Not Present Thought Process: Intact and Goal Oriented Thought Content: positive for Intact and positive for Goal Oriented Depressive Symptoms: Thoughts of /Suicide (denies) Judgement: Good Data Data Completed and Pending Completed studies during hospitalization [Text1]: 06/17/23 06/17/23 06/18/23 21:12 22:22 03:10 WBC 13.7 H RBC 3.69 L Hgb 12.3 Hct 36.5 L MCV 98.9 H MCH 33.3 H MCHC 33.7 RDW 12.9 Plt Count 292 MPV 9.2 L Immature Gran % (Auto) 0.2 Neut % (Auto) 59.6 Lymph % (Auto) 24.8 [place] % (Auto) 10.2 Eos % (Auto) 4.5 H Baso % (Auto) 0.7 Lymph # (Auto) 3.4 [place] # (Auto) 1.4 H Eos # (Auto) 0.6 H Baso # (Auto) 0.1 Abs Immat Gran (auto) 0.03 Absolute Neuts (auto) 8.1 Absolute Nucleated RBC 0.000 Nucleated RBC % (auto) 0.0 VBG pH VBG pCO2 VBG pO2 VBG HCO3 VBG O2 Saturation VBG Base Excess Sodium 142 Potassium 3.6 Chloride 105 Carbon Dioxide 26 Anion Gap 15 BUN 18 H Creatinine 1.32 Estim Creat Clear Calc 41.8 Estimated GFR 41 Random Glucose 132 H Estimat Average Glucose Hemoglobin A1c % Calcium 9.6 D Magnesium Total Bilirubin 0.2 AST 39 H ALT 15 Alkaline Phosphatase 88 Ammonia Total Protein 7.2 Albumin 4.1 Triglycerides Cholesterol LDL Cholesterol, Calc HDL Cholesterol Vitamin B12 Folate TSH Free T4 Urine Color Yellow Urine Appearance Clear Urine pH 6.0 Ur Specific [place] >= 1.030 H Urine Protein Trace Urine Glucose (UA) Negative Urine Ketones Trace Urine Blood Trace H Urine Nitrite Negative Ur Leukocyte Esterase Negative Urine RBC 6-10 H Urine WBC 0-5 Ur Squamous Epith Cells 3-5 Urine Bacteria 1+ Hyaline Casts 0-2 Urine Opiates Screen Not Detected Urine Fentanyl Screen Not Detected Ur Barbiturates Screen Not Detected Ur Phencyclidine Scrn Not Detected Ur Amphetamines Screen Not Detected U Benzodiazepines Scrn Not Detected Urine Cocaine Screen Not Detected U Marijuana (THC) Screen POSITIVE H Ethyl Alcohol < 10 COVID-19 (RAVI) COVID-19 Clin Com 06/18/23 06/18/23 06/18/23 08:26 08:27 08:32 WBC RBC Hgb Hct MCV MCH MCHC RDW Plt Count MPV Immature Gran % (Auto) Neut % (Auto) Lymph % (Auto) [place] % (Auto) Eos % (Auto) Baso % (Auto) Lymph # (Auto) [place] # (Auto) Eos # (Auto) Baso # (Auto) Abs Immat Gran (auto) Absolute Neuts (auto) Absolute Nucleated RBC Nucleated RBC % (auto) VBG pH 7.40 VBG pCO2 40 VBG pO2 98 VBG HCO3 25 VBG O2 Saturation 100.0 VBG Base Excess 0.9 Sodium Potassium Chloride Carbon Dioxide Anion Gap BUN Creatinine Estim Creat Clear Calc Estimated GFR Random Glucose Estimat Average Glucose Hemoglobin A1c % Calcium Magnesium Total Bilirubin AST ALT Alkaline Phosphatase Ammonia 25 Total Protein Albumin Triglycerides Cholesterol LDL Cholesterol, Calc HDL Cholesterol Vitamin B12 Folate TSH 0.08 L Free T4 1.24 Urine Color Urine Appearance Urine pH Ur Specific [place] Urine Protein Urine Glucose (UA) Urine Ketones Urine Blood Urine Nitrite Ur Leukocyte Esterase Urine RBC Urine WBC Ur Squamous Epith Cells Urine Bacteria Hyaline Casts Urine Opiates Screen Urine Fentanyl Screen Ur Barbiturates Screen Ur Phencyclidine Scrn Ur Amphetamines Screen U Benzodiazepines Scrn Urine Cocaine Screen U Marijuana (THC) Screen Ethyl Alcohol COVID-19 (RAVI) COVID-19 Clin Com 06/18/23 06/20/23 13:53 07:22 WBC RBC Hgb Hct MCV MCH MCHC RDW Plt Count MPV Immature Gran % (Auto) Neut % (Auto) Lymph % (Auto) [place] % (Auto) Eos % (Auto) Baso % (Auto) Lymph # (Auto) [place] # (Auto) Eos # (Auto) Baso # (Auto) Abs Immat Gran (auto) Absolute Neuts (auto) Absolute Nucleated RBC Nucleated RBC % (auto) VBG pH VBG pCO2 VBG pO2 VBG HCO3 VBG O2 Saturation VBG Base Excess Sodium Potassium Chloride Carbon Dioxide Anion Gap BUN Creatinine Estim Creat Clear Calc Estimated GFR Random Glucose Estimat Average Glucose 103 Hemoglobin A1c % 5.2 Calcium Magnesium 2.3 Total Bilirubin AST ALT Alkaline Phosphatase Ammonia Total Protein Albumin Triglycerides 122 Cholesterol 153 LDL Cholesterol, Calc 75 HDL Cholesterol 54 Vitamin B12 532 Folate 7.8 TSH 0.06 L Free T4 1.21 Urine Color Urine Appearance Urine pH Ur Specific [place] Urine Protein Urine Glucose (UA) Urine Ketones Urine Blood Urine Nitrite Ur Leukocyte Esterase Urine RBC Urine WBC Ur Squamous Epith Cells Urine Bacteria Hyaline Casts Urine Opiates Screen Urine Fentanyl Screen Ur Barbiturates Screen Ur Phencyclidine Scrn Ur Amphetamines Screen U Benzodiazepines Scrn Urine Cocaine Screen U Marijuana (THC) Screen Ethyl Alcohol COVID-19 (RAVI) Negative COVID-19 Clin Com See Note Imaging Diagnostic Imaging Impressions Chest X-Ray 06/18/23 09:23 IMPRESSION: No radiographically evident acute pulmonary abnormalities. DS: Summary Hospital Course Hospital Course: Admission to adult psychiatry for exacerbation of symptoms of depression, anxiety with confusion and paranoia. Pt had been taking Klonopin 2 mg tid and Xanax 2 mg tid for approximately 10 years. Her intermediate medication provider retired and she did not receive her prescriptions and was in withdrawal with delirium due to benzodiazepine withdrawal. Medications were stabilized and pt's symptoms cleared. She signed a three day notice and will return to providers at [facility] and [facility] to continue to manage tapering and readjustments in her regime. Time spent discussing smoking cessation with patient: more than 10 minutes Status at Discharge Functional status at discharge: independent ambulation Overall status at discharge: patient is progressing back to baseline Time Spent with Patient Time attestation: Total time managing care of this patient today ____ minutes. Time spent: Greater than 30 minutes Discharge Plan Discharge Anticipated Discharge Date/Time: 06/24/23 12:00 Patient Disposition: Home, Self-Care Discharge Diagnosis: Resolved Delirium due to abrupt benzodiazepine withdrawal Referrals: [facility] and Counseling: Pepe Manzanares MD [Other] - 07/09/23 12:30 pm (Initial Evaluation by psychiatric provider for medication management Appointment is in person at [facility] and [facility] ) Shazia Dai MD [Physician] - 06/26/23 12:30 pm (in office) Discharge Medications: New clonazepam 1 mg Tablet 1 mg PO BID Qty: 14 4RF levothyroxine 150 mcg Tablet 150 mcg PO DAILY Qty: 0 0RF Continued lamotrigine 200 mg tablet 200 mg PO BEDTIME Qty: 30 0RF simvastatin 20 mg tablet 20 mg PO DAILY omeprazole 20 mg capsule,delayed release(DR/EC) 20 mg PO DAILY budesonide-formoterol [Symbicort] 160-4.5 mcg/actuation HFA aerosol inhaler 2 puff inhalation BID Discontinued levothyroxine 150 mcg tablet 150 mcg PO DAILY Discharge Orders: Discharge Order (Routine); Ordered 06/24/23 Ordered By: Karrie Diaz Diet: Advance to usual diet Activity on Discharge: As tolerated Stand Alone Forms: Patient Portal Discharge page, Community Support Care Plan Goals: Mood and Behavioral Stabilization Health Concerns: Mood and Behavioral Stabilization Plan of Treatment: Attend scheduled appointments Take medications as directed Continue to HOLD Levothyroxine as your TSH level has been low. Follow up with your PCP before re-starting this medication. Call and/or return as needed. Assessment: Discharges on a three day notice of intent. Discharge Date/Time: 06/24/23 11:59
== END 2023-06-24 11:59 | disposition home or self-care (01) | DRG 897 ==
LOC: HO.ED 06-19 07:57 → HO.PM5 06-19 19:36
PROVIDERS: Emergency Medicine; Nurse Practitioner Family; Admitting Provider Psychiatry & Neurology Psychiatry; Emergency Provider Emergency Medicine; Visit Provider Clinical Nurse Specialist Psychiatric/Mental Health, Adult
DX: F13.931 Sedative, hypnotic or anxiolytic use, unspecified with withdrawal delirium (principal); E03.9 Hypothyroidism, unspecified; F31.9 Bipolar disorder, unspecified; J44.9 Chronic obstructive pulmonary disease, unspecified; F17.210 Nicotine dependence, cigarettes, uncomplicated; Z20.822 Contact with and (suspected) exposure to COVID-19; Z71.6 Tobacco abuse counseling; Z79.890 Hormone replacement therapy; Z79.899 Other long term (current) drug therapy
CPT/HCPCS: 36415; 71045; 80053; 80061; 80307; 81001; 82140; 82607; 82746; 82803; 83036; 83735; 84439; 84443; 85025; 87635; 93005; 99285; J1630; J2060; S9485

== ENCOUNTER → 2023-06-17 21:29 | Outpatient (BNV) | payer MEDICARE, SELFPAY | PROVIDERS: Emergency Provider Emergency Medicine; Visit Provider Social Worker | DX: F05 Delirium due to known physiological condition (principal); F13.230 Sedative, hypnotic or anxiolytic dependence with withdrawal, uncomplicated | CPT/HCPCS: 99231; 99232; 99238; 99285 ==

== ENCOUNTER → 2023-06-19 08:17 | Outpatient (BNV) | payer MEDICARE, SELFPAY | PROVIDERS: Emergency Provider Emergency Medicine; Visit Provider Internal Medicine | DX: R94.31 Abnormal electrocardiogram [ECG] [EKG] (principal) | CPT/HCPCS: 93010 ==

== ENCOUNTER 2024-04-12 12:50 | Inpatient (IN) | payer MEDICARE, SELFPAY ==
[2024-04-12 13:11] VITALS: BP 139/81; PULSE 95; RESP 18; TEMP 36.6; O2SAT 98; BMI 26.3
--- NOTE | 2024-04-12 13:14 | ED_ITS ---
HPI - Psych General Chief Complaint: Psychiatric Symptoms Stated Complaint: psych eval Time Seen by Provider: 04/12/24 14:08 Source: patient Mode of arrival: ambulatory Limitations: no limitations History of Present Illness ED Provider: Arnoldo Veronica PA-C HPI Narrative: 64 yo female with history of depression, COPD on 1.5L NC, anxiety on chronic klonopin who presents to the ER from home c/o increased anxiety and depression in the setting of tapering klonopin. She states she has a new prescriber since October who has been trying to taper her down on her klonopin too fast. She reports being on benzos for the last 25 years. She states she was on 6 mg of both klonopin and xanax at one time. She was then tapered to klonopin only, 1mg tid. she states last year in May she required admission here for paranoia and delisions related to withdrawal. She states she was told tapering her off of the benzos would take 3-5 years but this new prescriber has been doing it too quickly and was recommending klonopin 0.5 mg tid. patient spoke with her PCP who told her she needed more. She has been taking 2mg per day. She continues to have anxiety and depression. She is tearful. Denies SI or HI. No AH/VH. She takes she took her last 2 pills this morning. Psych provider here [facility] is aware she is here. complaint: feels depressed and anxiety Onset (ago): week(s) Duration: constant History of same: Yes Relieving factors: medication Associated psychiatric symptoms: depression Associated symptoms: denies other symptoms Related Data Home Medications ?Medication ?Instructions ?Recorded ?Confirmed simvastatin 20 mg tablet 10 mg PO BEDTIME 08/05/21 04/12/24 omeprazole 20 mg capsule,delayed 20 mg PO BID 05/27/22 04/12/24 release budesonide-formoterol HFA 160 2 puff inhalation BID 05/06/23 04/12/24 mcg-4.5 mcg/actuation aerosol inhaler (Symbicort) amoxicillin 875 mg-potassium 1 tab PO BID 04/12/24 04/12/24 clavulanate 125 mg tablet clonazepam 0.5 mg tablet 0.5 mg PO TID PRN Anxiety 04/12/24 04/12/24 lamotrigine 200 mg tablet 100 mg PO BEDTIME 04/12/24 04/12/24 levothyroxine 125 mcg tablet 125 mcg PO DAILY 04/12/24 04/12/24 levothyroxine 150 mcg tablet 125 mcg PO DAILY 04/12/24 mupirocin 2 % topical ointment topical TID 04/12/24 Previous Rx's ?Medication ?Instructions ?Recorded clonazepam 1 mg tablet 1 mg PO BID #14 tabs 06/24/23 Allergies Allergy/AdvReac Type Severity Reaction Status Date / Time acetaminophen [From VICODIN] Allergy Unknown VOMITTING Verified 04/12/24 13:13 hydrocodone [Vicodin] Allergy Unknown nausea and Verified 04/12/24 13:13 vomiting escitalopram AdvReac Severe Confusion Verified 04/12/24 13:13 hydroxyzine AdvReac Severe Confusion Verified 04/12/24 13:13 trazodone AdvReac Severe Confusion Verified 04/12/24 13:13 promethazine AdvReac Unknown Confusion Verified 04/12/24 13:13 From VICODIN Allergy Unknown VOMITTING Uncoded 04/12/24 13:13 Review of Systems 2 Review of Systems: Yes all other systems are reviewed and are negative PMFSH Past Medical History Medical History COPD (chronic obstructive pulmonary disease) Hypothyroid Bipolar 1 disorder Surgical History History of carpal tunnel surgery H/O shoulder surgery Family History Family History Father Lung cancer Social History Social History Household Members: None Housing: Apartment Do you presently have visiting nurse or other home services: No Unable to assess alcohol history related to: Unknown Alcohol intake: former Patient Tobacco Use Status: Current someday Tobacco user Tobacco use type: Cigarette Cigarettes Per Day: 10 Smoked in Last 30 Days: Yes Second Hand Smoke Exposure: No Use of substances other than those prescribed or required for medical reasons: No Advance Directives: No Advance Directives Information Provided: Yes Do you have a plan to hurt others: No Plan service: No Sexual orientation: Straight/Heterosexual Gender identity: Female Physical Exam 2 Vital Signs: Vital Signs: Last Vital Signs Temp 97.9 F 04/12/24 13:11 Pulse 95 04/12/24 13:11 Resp 18 04/12/24 13:11 BP 139/81 04/12/24 13:11 Pulse Ox 98 04/12/24 13:11 O2 Del Method Room Air 04/12/24 13:11 BMI result Body Mass Index 26.3 Appearance: Alert. Oriented X3. No acute distress. Head: normocephalic, atraumatic. Eyes: Pupils equal, round and reactive to light. ENT: Pharynx normal. No tonsillar swelling or exudate. Neck: Normal inspection. Neck supple. CVS: Normal heart rate and rhythm. Pulses normal. Respiratory: No respiratory distress. Breath sounds normal. Abdomen: Soft and nontender. +BS x4 Skin: Skin warm and dry. Normal skin color. Normal skin turgor. No rashes. Extremities: No lower extremity edema. No joint swelling. Neuro/psych: Oriented X 3. No motor deficit. No sensory deficit. CN II-XII intact. Normal speech and cognition. Mood is anxious normal thought process Course Course Course Narrative: This is a rapid medical exam performed by Bernda Foote PA-C. The patient is a 64-year-old female with history of depression, COPD, hyperlipidemia, and GERD presents given need to speak with crisis. Patient states she has been tapering off her Klonopin, however she feels she is exhibiting withdrawal symptoms. She reached out to her prescriber, who advised she come to the emergency department for assessment. Patient denies SI, HI, drug or alcohol use. The patient is alert and oriented, well in appearance, hemodynamically stable. We will be screening basic labs, serum ethanol, drug toxicology and she will be seen by our care team. Medical Decision Making Medical Decision Making MDM Narrative: 64-year-old female with a history of anxiety on longstanding benzodiazepines, depression, COPD who presents to the ER for evaluation after she has been in her Klonopin not as prescribed. According to her PERFORMANCE IMPROVEMENT DIRECTOR she picked up 90 tablets of 0.5 mg Klonopin on 04/12. She states she took her last 2 pills this morning. She is worried about going through withdrawal. She is tearful on arrival. Not suicidal homicidal. Not having any hallucinations. Care team evaluated the patient. They are recommending a psychiatry consult for further management. Patient placed in physician observation pending psychiatry consult. Differential Diagnosis Differential Diagnoses: The differential diagnosis associated with the presentation includes Benzodiazepine abuse, benzodiazepine withdrawal, anxiety, med seeking Admission/Observation Consideration of admission/observation: Escalation of care including admission/observation considered Consult Healthcare Provider Management of the patient was discussed with: Behavioral Health Provider Lab Data MDM Lab Attestation statement: I reviewed the patient's lab results. Normal CBC, elevated bicarbonate consistent with chronic underlying lung disease 04/12/24 13:47 04/12/24 13:47 Labs: Lab Results 04/12/24 Range/Units 13:47 WBC 7.6 (4.8-10.8) X10*3/uL RBC 3.94 L (4.20-5.50) X10*6/uL Hgb 13.5 (12.0-16.0) g/dl Hct 40.6 (37.0-47.0) % MCV 103.0 H (80.0-98.0) fL MCH 34.3 H (27.0-33.0) pg MCHC 33.3 (31.0-35.0) g/dl RDW 12.8 (11.0-16.0) % Plt Count 357 (160-400) X10*3/uL MPV 8.8 L (9.4-12.3) fL Immature Gran % (Auto) 0.3 (0.0-0.4) % Neut % (Auto) 48.6 (45-73) % Lymph % (Auto) 34.1 (20-40) % [place] % (Auto) 9.6 (2-11) % Eos % (Auto) 6.6 H (0-4) % Baso % (Auto) 0.8 (0-2) % Lymph # (Auto) 2.6 (1.2-4.9) X10*3/uL [place] # (Auto) 0.7 (0.1-1.2) X10*3/uL Eos # (Auto) 0.5 H (0.0-0.4) X10*3/uL Baso # (Auto) 0.1 (0.0-0.2) X10*3/uL Abs Immat Gran (auto) 0.02 (0.00-0.03) X10*3/uL Absolute Neuts (auto) 3.7 (2.0-8.3) x10*3/uL Absolute Nucleated RBC 0.000 (0.0-0.012) X10*3/uL Nucleated RBC % (auto) 0.0 (0.0-0.2) /100WBC Sodium 142 (135-145) mmol/L Potassium 3.7 (3.3-5.1) mmol/L Chloride 105 (96-108) mmol/L Carbon Dioxide 32 H (22-29) mmol/L Anion Gap 9 L (12-20) BUN 12 (9-16) mg/dL Creatinine 0.86 (0.5-1.4) mg/dL Estim Creat Clear Calc 69.4 Estimated GFR > 60 Random Glucose 81 (60-115) mg/dL Calcium 9.9 (8.4-10.2) mg/dL Magnesium 2.0 (1.6-2.6) mg/dL Total Bilirubin 0.2 (0.0-1.0) mg/dL AST 26 (5-31) U/L ALT 19 (0-31) U/L Alkaline Phosphatase 80 (39-117) U/L Total Protein 7.6 (6.5-8.0) g/dL Albumin 4.3 (3.5-5.0) g/dL TSH 0.36 (0.32-4.0) uIU/mL Urine Opiates Screen Not Detected (Not Detect) Ur Buprenorphine Scrn Not Detected (Not Detect) ng/mL Ur Oxycodone Screen Not Detected (Not Detect) ng/mL Urine Methadone Screen Not Detected (Not Detect) ng/mL Urine Fentanyl Screen Not Detected (Not Detect) Ur Barbiturates Screen Not Detected (Not Detect) Ur Phencyclidine Scrn Not Detected (Not Detect) Ur Amphetamines Screen Not Detected (Not Detect) U Benzodiazepines Scrn POSITIVE H (Not Detect) Urine Cocaine Screen Not Detected (Not Detect) U Marijuana (THC) Screen Not Detected (Not Detect) Ethyl Alcohol < 10 mg/dL External Record Review External record reviewed: Inpatient record and Prior outpatient labs Prescription Management I considered prescription management with: Other (klonopin) Chronic Conditions Patient?s care impacted by: Other (anxiety, COPD) Critical Care Time Critical Care Time Critical Care Time: No Discharge Plan Discharge Clinical Impression: Anxiety, Benzodiazepine misuse Patient Disposition: Still a Patient Prescriptions: No Action clonazepam 1 mg Tablet 1 mg PO BID Qty: 14 4RF levothyroxine 150 mcg tablet 125 mcg PO DAILY clonazepam 0.5 mg tablet 0.5 mg PO TID PRN (Reason: Anxiety) levothyroxine 125 mcg tablet 125 mcg PO DAILY mupirocin 2 % ointment topical TID amoxicillin-pot clavulanate 875-125 mg tablet 1 tab PO BID lamotrigine 200 mg tablet 100 mg PO BEDTIME simvastatin 20 mg tablet 10 mg PO BEDTIME omeprazole 20 mg capsule,delayed release(DR/EC) 20 mg PO BID budesonide-formoterol [Symbicort] 160-4.5 mcg/actuation HFA aerosol inhaler 2 puff inhalation BID Interventions: Kleberg-Suicide Risk Severity Scale Last Done: 04/12/24 15:29 Print Language: Nicaraguan
[2024-04-12 13:59] LABS: MANUAL DIFF FLAG NO
[2024-04-12 14:03] LABS: Basophils Absolute Auto 0.1 X10*3/uL (0.0-0.2); Basophils Percent Auto 0.8 % (0-2); Eosinophils Absolute Auto 0.5 X10*3/uL (0.0-0.4); Eosinophils Percent Auto 6.6 % (0-4); Hematocrit 40.6 % (37.0-47.0); Hemoglobin 13.5 g/dl (12.0-16.0); Imm Gran Abs Auto 0.02 X10*3/uL (0.00-0.03); Imm Gran Pct Auto 0.3 % (0.0-0.4); Lymphocytes Absolute Auto 2.6 X10*3/uL (1.2-4.9); Lymphocytes Percent Auto 34.1 % (20-40); Mean Corpuscular HGB Conc 33.3 g/dl (31.0-35.0); Mean Corpuscular Hemoglobin 34.3 pg (27.0-33.0); Mean Platelet Volume 8.8 fL (9.4-12.3); Monocytes Absolute Auto 0.7 X10*3/uL (0.1-1.2); Monocytes Percent Auto 9.6 % (2-11); Neutrophils Absolute Auto 3.7 x10*3/uL (2.0-8.3); Neutrophils Percent Auto 48.6 % (45-73); Platelet Count 357 X10*3/uL (160-400); Red Blood Count 3.94 X10*6/uL (4.20-5.50); Red Cell Distribution Width 12.8 % (11.0-16.0); White Blood Count 7.6 X10*3/uL (4.8-10.8)
[2024-04-12 14:13] LABS: Amphetamine Screen Urine Not Detected (Not Detect); Barbiturates, Urine Not Detected (Not Detect); Benzodiazepines Screen Urine POSITIVE (Not Detect); Buprenorphine Scr Not Detected (Not Detect); Cannabinoid Screen Urine Not Detected (Not Detect); Cocaine Screen Urine Not Detected (Not Detect); Fentanyl, urine Not Detected (Not Detect); Methadone Screen, Urine Not Detected (Not Detect); Opiate Screen Urine Not Detected (Not Detect); Oxycodone Screen Urine Not Detected (Not Detect); Phencyclidine Screen Urine Not Detected (Not Detect)
[2024-04-12 14:30] LABS: Alanine Aminotransferase 19 U/L (0-31); Albumin Level 4.3 g/dL (3.5-5.0); Alkaline Phosphatase 80 U/L (39-117); Anion Gap 9 (12-20); Aspartate Amino Transferase 26 U/L (5-31); Bilirubin Total 0.2 mg/dL (0.0-1.0); Blood Urea Nitrogen 12 mg/dL (9-16); Calcium 9.9 mg/dL (8.4-10.2); Carbon Dioxide 32 mmol/L (22-29); Chloride 105 mmol/L (96-108); Creatinine Clr Calc Pharmacy 69.4; Estimated Glomerular Filt Rate > 60; Ethanol < 10 mg/dL; Glucose Random 81 mg/dL (60-115); Potassium 3.7 mmol/L (3.3-5.1); Sodium 142 mmol/L (135-145); Total Protein 7.6 g/dL (6.5-8.0)
[2024-04-12 14:47] LABS: TSH reflex Free T4 0.36 uIU/mL (0.32-4.0)
[2024-04-12 16:00] VITALS: BP 113/72; PULSE 90; RESP 15; TEMP 36.8; O2SAT 97
[2024-04-12] MEDS: clonazePAM 0.5 MG TABLET PO (16:45)
[2024-04-12] MEDS: Ibuprofen 600 MG TABLET PO (18:15)
[2024-04-12 19:29] VITALS: BP 135/71; PULSE 78; RESP 16; TEMP 36.3; O2SAT 96
--- NOTE | 2024-04-12 20:09 | PHA.MEDREC ---
Pharmacy Consult ? Medication Reconciliation Pharmacy has completed the medication reconciliation.
[2024-04-12] MEDS: Mupirocin 2 % Oint 22 GM TUBE 1 APPL TOPICAL (20:37)
[2024-04-12] MEDS: Atorvastatin Calcium 10 MG TABLET PO (20:38)
[2024-04-12] MEDS: lamoTRIgine 100 MG TABLET PO (20:38)
[2024-04-12] MEDS: Amoxicillin/Potassium Clav 875 MG TABLET PO (20:38)
[2024-04-12] MEDS: Acetaminophen 325 MG TABLET 975 MG PO (22:05)
--- NOTE | 2024-04-12 22:41 | PC.NURSE ---
Assumed care of pt. Pt on stretcher transfered from 22H to 17H, pt on 0.5l O2 via NC per home use. No acute distress at this time. Pt remains calm and cooperative.
--- NOTE | 2024-04-13 | ECG_ITS ---
Test Reason : qrs Blood Pressure : / mmHG Vent. Rate : 078 BPM Atrial Rate : 078 BPM P-R Int : 160 ms QRS Dur : 076 ms QT Int : 398 ms P-R-T Axes : 075 017 033 degrees QTc Int : 453 ms Normal sinus rhythm Normal ECG When compared with ECG of 19-JUN-2023 12:10, Nonspecific T wave abnormality, improved in Inferior leads T wave inversion no longer evident in Lateral leads Referred By: Leighann Veronica Electronically Signed By:John Kent
[2024-04-13] MEDS: clonazePAM 0.5 MG TABLET PO ×3 (01:08→17:03)
[2024-04-13 03:58] VITALS: BP 124/60; PULSE 80; RESP 14; TEMP 36.7; O2SAT 95
[2024-04-13] MEDS: LEVOTHYROXINE SODIUM 125 MCG PO (06:16)
[2024-04-13] MEDS: Omeprazole 20 MG CAPSULE.DR PO ×2 (06:16→15:38)
[2024-04-13] MEDS: Amoxicillin/Potassium Clav 875 MG TABLET PO ×2 (08:16→20:26)
[2024-04-13] MEDS: lamoTRIgine 100 MG TABLET PO ×2 (08:16→20:27)
[2024-04-13] MEDS: Atorvastatin Calcium 10 MG TABLET PO (08:16)
[2024-04-13 08:23] LABS: Appearance Urine Clear; Color Urine Yellow; Glucose Urine UA Negative (Negative); Leukocyte Esterase Urine Negative (Negative); Nitrite Urine Negative (Negative); PH 5.5 (5.0-9.0); Specific Gravity - Urine 1.025 (1.005-1.025); Urine Blood Negative (Negative); Urine Ketones Negative (Negative); Urine Protein Negative (Neg-Trace)
[2024-04-13] MEDS: Acetaminophen 325 MG TABLET 650 MG PO ×3 (12:00→21:22)
[2024-04-13 14:55] VITALS: BP 132/72; PULSE 75; RESP 16; TEMP 36.8; O2SAT 94
--- NOTE | 2024-04-13 16:50 | PC.ADMIT ---
Pt arrived on the unit at 1445 via wheel chair from [facility]. She is here on a CV. Pt is here due to a need for a medication adjustment. Pt is a 64 year old female, caucasion. She reports that she started to take double the dose of her Klonopin while at home. She states that she did this due to an increase in anxiety-precipitating factor for that increase in anxiety, unknown. Pt. states that this increase in Klonopin, caused an increase in depression. Pt is hyperverbal, pleasant and cooperative, and anxious. She makes good eye contact and speaks in a normal chuy, volume, and tone. Skin check reveled several small and mild bruises on BL LE.
[2024-04-13 20:00] VITALS: BP 157/80; PULSE 70; RESP 16; TEMP 36.8; O2SAT 96
[2024-04-13] MEDS: Mupirocin 2 % Oint 22 GM TUBE 1 APPL TOPICAL (20:41)
[2024-04-14] MEDS: LEVOTHYROXINE SODIUM 125 MCG PO (06:15)
[2024-04-14] MEDS: Omeprazole 20 MG CAPSULE.DR PO ×2 (06:32→13:30)
[2024-04-14 07:00] VITALS: BMI 27.3
[2024-04-14 08:11] VITALS: BP 122/73; PULSE 95; RESP 18; TEMP 36.4; O2SAT 95
[2024-04-14] MEDS: Montelukast Sodium 10 MG TABLET PO (08:12)
[2024-04-14] MEDS: Atorvastatin Calcium 10 MG TABLET PO (08:12)
[2024-04-14] MEDS: clonazePAM 0.5 MG TABLET PO ×3 (08:12→20:30)
[2024-04-14] MEDS: Amoxicillin/Potassium Clav 875 MG TABLET PO ×2 (08:12→20:30)
[2024-04-14] MEDS: Acetaminophen 325 MG TABLET 650 MG PO ×2 (08:13→14:17)
[2024-04-14] MEDS: lamoTRIgine 100 MG TABLET PO ×2 (08:13→20:31)
[2024-04-14 08:14] LABS: Glucose, Whole Blood 106 mg/dL (60-115)
[2024-04-14] MEDS: Fluticasone/Vilanterol 200/25 BLST.W.DEV 1 PUFF INHALE (08:21)
[2024-04-14 08:23] LABS: Alanine Aminotransferase 18 U/L (0-31); Alkaline Phosphatase 70 U/L (39-117); Anion Gap 10 (12-20); Aspartate Amino Transferase 24 U/L (5-31); Bilirubin Total 0.3 mg/dL (0.0-1.0); Blood Urea Nitrogen 10 mg/dL (9-16); Calcium 9.8 mg/dL (8.4-10.2); Carbon Dioxide 30 mmol/L (22-29); Chloride 105 mmol/L (96-108); Cholesterol 191 mg/dL (<200); Creatinine Clr Calc Pharmacy 71.9; Estimated Glomerular Filt Rate > 60; Glucose Fasting 94 mg/dL (60-99); HDL Cholesterol 57 mg/dL (>40); LDL Cholesterol Calculated 107 mg/dL (<100); Potassium 4.4 mmol/L (3.3-5.1); Sodium 141 mmol/L (135-145); Total Protein 7.3 g/dL (6.5-8.0); Triglycerides 139 mg/dL (<150)
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
[2024-04-14] MEDS: Sertraline HCL 25 MG TABLET PO (13:30)
[2024-04-14] MEDS: Ibuprofen 600 MG TABLET PO (14:00)
[2024-04-14 20:00] VITALS: BP 139/67; PULSE 67; RESP 18; TEMP 36.5; O2SAT 95
[2024-04-14] MEDS: Mupirocin 2 % Oint 22 GM TUBE 1 APPL TOPICAL (22:04)
[2024-04-15] MEDS: clonazePAM 0.5 MG TABLET PO ×4 (01:18→23:23)
[2024-04-15] MEDS: LEVOTHYROXINE SODIUM 125 MCG PO (06:22)
[2024-04-15] MEDS: Omeprazole 20 MG CAPSULE.DR PO ×2 (06:34→15:16)
[2024-04-15 07:43] VITALS: BP 92/53; PULSE 73; RESP 16; TEMP 36.5; O2SAT 95
[2024-04-15] MEDS: Amoxicillin/Potassium Clav 875 MG TABLET PO ×2 (08:21→23:22)
[2024-04-15] MEDS: Atorvastatin Calcium 10 MG TABLET PO (08:22)
[2024-04-15] MEDS: Sertraline HCL 25 MG TABLET PO (08:22)
[2024-04-15 08:23] VITALS: BP 115/79; PULSE 78
[2024-04-15] MEDS: lamoTRIgine 25 MG TABLET 50 MG PO (08:23)
[2024-04-15] MEDS: Fluticasone/Vilanterol 200/25 BLST.W.DEV 1 PUFF INHALE (08:26)
--- NOTE | 2024-04-15 12:12 | P.PNPSI_ITS ---
Subjective Subjective Date of Service: 04/15/24 Reason For Visit: Crisis Interim History: calm, cooperative. feels her anxiety is under better control than [employer], but remains quite anxious. educated re CIWA assessments with ativan PRN withdrawal Sx. pt denies taking 4x her prescribed klonopin, saying she has 15 pills or so left from the 90 that she was given (why she would have presented saying she hadn't had the medication in several days, if that were the case, is not clear). no s/e from zoloft. agreeable to remain in hospital for continued establishment on new benzo dosing and SSRI and to be monitored for benzo withdrawal. per staff, taking medication. up at 0130 x 1. CIWA 4, 5, 2. Mental Status Exam Mental Status Exam Narrative: adequately dressed and groomed. cooperative. no PMA/PMR. speech nml rate, amount, loudness, tone, latency. thoughts linear and logical. affect constricted, normo-intense, non-labile. mood anxious. no SI/SIBI/HI/AVH expressed. Diagnostics Vital Signs (24Hr): Vital Signs - 24 hr 04/14/24 20:00 04/15/24 07:43 04/15/24 08:23 Temperature 97.7 F 97.7 F Pulse Rate 67 73 78 Respiratory Rate 18 16 Blood Pressure 139/67 92/53 L 115/79 Pulse Oximetry 95 95 Oxygen Delivery Method Room Air Room Air BMI result Body Mass Index 27.3 Labs 04/12/24 13:47 04/14/24 07:53 Labs: Laboratory Results - last 48 hr 04/14/24 04/14/24 07:53 08:07 Sodium 141 Potassium 4.4 Chloride 105 Carbon Dioxide 30 H Anion Gap 10 L BUN 10 Creatinine 0.83 Estim Creat Clear Calc 71.9 Estimated GFR > 60 POC Glucose 106 Fasting Glucose 94 Calcium 9.8 Total Bilirubin 0.3 AST 24 ALT 18 Alkaline Phosphatase 70 Total Protein 7.3 Albumin 4.0 Triglycerides 139 Cholesterol 191 LDL Cholesterol, Calc 107 H HDL Cholesterol 57 Medications Medications Current Medications Acetaminophen (Acetaminophen 325 Mg Tablet) 650 mg PO Q6H PRN PRN Reason: Headache/Pain Mild Scale (1-3) Last Admin: 04/14/24 14:17 Dose: 650 mg Al Hydroxide/Mg Hydroxide (Magnesium Hydrox/Alum Hydrox 30 Ml Oral.Susp) 30 ml PO Q6H PRN PRN Reason: Heartburn/Nausea Amoxicillin/Clavulanate Potassium (Amoxicillin/Potassium Clav 875 Mg Tablet) 875 mg PO BID [facility] Last Admin: 04/15/24 08:21 Dose: 875 mg Atorvastatin Calcium (Atorvastatin Calcium 10 Mg Tablet) 10 mg PO DAILY [facility] Last Admin: 04/15/24 08:22 Dose: 10 mg Clonazepam (Clonazepam 0.5 Mg Tablet) 0.5 mg PO TID [facility] Last Admin: 04/15/24 08:23 Dose: 0.5 mg Clonazepam (Clonazepam 0.5 Mg Tablet) 0.5 mg PO DAILY PRN PRN Reason: anxiety Last Admin: 04/15/24 01:18 Dose: 0.5 mg Fluticasone/Vilanterol (Fluticasone/Vilanterol 200/25 Blst.W.Dev) 1 puff INHALE RDAILY [facility] Last Admin: 04/15/24 08:26 Dose: 1 puff Ibuprofen (Ibuprofen 600 Mg Tablet) 600 mg PO Q6H PRN PRN Reason: pain (pain scale 1-10) Last Admin: 04/14/24 14:00 Dose: 600 mg Lamotrigine (Lamotrigine 100 Mg Tablet) 100 mg PO BEDTIME [facility] Last Admin: 04/14/24 20:31 Dose: 100 mg Lamotrigine (Lamotrigine 25 Mg Tablet) 50 mg PO DAILY [facility] Last Admin: 04/15/24 08:23 Dose: 50 mg Levothyroxine Sodium 25 mcg/ (Levothyroxine Sodium 100 mcg) 125 mcg PO DAILY@0600 [facility] Last Admin: 04/15/24 06:22 Dose: 125 mcg Lorazepam (Lorazepam 1 Mg Tablet) 1 mg PO Q2H PRN PRN Reason: CIWA 8-11 Lorazepam (Lorazepam 1 Mg Tablet) 2 mg PO Q2H PRN PRN Reason: CIWA 12-15 Lorazepam (Lorazepam 1 Mg Tablet) 3 mg PO Q2H PRN PRN Reason: CIWA > 15; and call Magnesium Hydroxide (Milk Of Magnesia 30 Ml Oral.Susp) 30 ml PO DAILY PRN PRN Reason: Constipation Mupirocin (Mupirocin 2 % Oint 22 Gm Tube) 1 appl TOPICAL TID PRN; Protocol PRN Reason: Rash Last Admin: 04/14/24 22:04 Dose: 1 appl Nicotine Polacrilex (Nicotine Polacrilex 2 Mg Gum) 4 mg BUCCAL Q2H PRN PRN Reason: Nicotine Cravings Omeprazole (Omeprazole 20 Mg Capsule.Dr) 20 mg PO BID@0630,1430 [facility] Last Admin: 04/15/24 06:34 Dose: 20 mg Sertraline HCl (Sertraline Hcl 25 Mg Tablet) 25 mg PO DAILY [facility] Last Admin: 04/15/24 08:22 Dose: 25 mg Allergies Allergies Allergy/AdvReac Type Severity Reaction Status Date / Time hydrocodone [Vicodin] Allergy Unknown nausea and Verified 04/12/24 13:13 vomiting escitalopram AdvReac Severe Confusion Verified 04/12/24 13:13 hydroxyzine AdvReac Severe Confusion Verified 04/12/24 13:13 trazodone AdvReac Severe Confusion Verified 04/12/24 13:13 promethazine AdvReac Unknown Confusion Verified 04/12/24 13:13 From VICODIN Allergy Unknown VOMITTING Uncoded 04/12/24 13:13 Assessment & Plan Assessment & Plan (1) Benzodiazepine misuse: Status: Acute Code(s): F13.90 - Sedative, hypnotic, or anxiolytic use, unspecified, uncomplicated (2) Anxiety: Status: Acute Code(s): F41.9 - Anxiety disorder, unspecified (3) Depression: Status: Acute Code(s): F32.A - Depression, unspecified (4) COPD (chronic obstructive pulmonary disease): Status: Acute Code(s): J44.9 - Chronic obstructive pulmonary disease, unspecified Plan 04/14: will need eventual full taper of benzos. schedule klonopin 0.5 TID with 0.5 daily PRN for now. pt may go into benzo withdrawal as she appears to have been taking 4x her prescribed amount. will need to monitor withdrawal and medicate more aggressively as indicated. start zoloft 25 mg daily for depression/anxiety. taper lamictal as not indicated as pt does not have bipolar disorder. it is not an evidence-based mood stabilizer so is not likely effective for that purpose, and pt does not have bipolar disorder so it is not indicated for treatment of bipolar depression. decrease morning dose to 50 mg daily, continue with HS dose of 100 mg. refer for new outpt providers. 04/15: continue current mgmt. monitoring for toleration of SSRI addiction and lamictal dose decrease, plus any withdrawal from benzos via CIWA with ativan PRNs. Reason for continued inpatient stay Substantial Risk for: inability to function and med/psych decompensation Time Spent With Patient Time: Total time managing care of this patient today __25__ minutes.
[2024-04-15] MEDS: Acetaminophen 325 MG TABLET 650 MG PO (13:28)
[2024-04-15 19:55] VITALS: BP 128/74; PULSE 79; RESP 14; TEMP 36.6; O2SAT 95
[2024-04-15] MEDS: lamoTRIgine 100 MG TABLET PO (23:22)
[2024-04-16] MEDS: clonazePAM 0.5 MG TABLET PO ×4 (03:28→22:05)
[2024-04-16] MEDS: LEVOTHYROXINE SODIUM 125 MCG PO (06:25)
[2024-04-16] MEDS: Omeprazole 20 MG CAPSULE.DR PO ×2 (06:58→12:56)
[2024-04-16 07:40] VITALS: BP 108/55; PULSE 82; RESP 16; TEMP 36.7; O2SAT 94
[2024-04-16] MEDS: Sertraline HCL 25 MG TABLET PO (08:26)
[2024-04-16] MEDS: Atorvastatin Calcium 10 MG TABLET PO (08:26)
[2024-04-16] MEDS: lamoTRIgine 25 MG TABLET 50 MG PO (08:26)
[2024-04-16] MEDS: Amoxicillin/Potassium Clav 875 MG TABLET PO ×2 (08:26→22:05)
[2024-04-16] MEDS: Fluticasone/Vilanterol 200/25 BLST.W.DEV 1 PUFF INHALE (08:27)
[2024-04-16] MEDS: Acetaminophen 325 MG TABLET 650 MG PO (15:31)
--- NOTE | 2024-04-16 16:20 | HO.PSYCHPN ---
Subjective Subjective Date of Service: 04/16/24 Reason For Visit: Crisis Subjective Notes: Conditional Voluntary Interim History: Pt slept about 6hrs. Pt denies SI/HI. reports unit is loud and this is triggering. She is mostly in her room, social with one to one due to oxygen. tolerating current dose of clonazepam without signs of withdrawal. Review of Systems Review of Systems Yes all other systems are reviewed and are negative Mental Status Exam Mental Status Exam Narrative: adequately dressed and groomed. cooperative. no PMA/PMR. speech nml rate, amount, loudness, tone, latency. thoughts linear and logical. affect constricted, normo-intense, non-labile. mood anxious. no SI/SIBI/HI/AVH expressed. Diagnostics Vital Signs (24Hr): Vital Signs - 24 hr 04/15/24 19:55 04/16/24 07:40 Temperature 97.9 F 98.1 F Pulse Rate 79 82 Respiratory Rate 14 16 Blood Pressure 128/74 108/55 L Pulse Oximetry 95 94 Oxygen Delivery Method Nasal Cannula Room Air Oxygen Flow Rate 1.5 BMI result Body Mass Index 27.3 Labs 04/12/24 13:47 04/14/24 07:53 Medications Medications Current Medications Acetaminophen (Acetaminophen 325 Mg Tablet) 650 mg PO Q6H PRN PRN Reason: Headache/Pain Mild Scale (1-3) Last Admin: 04/16/24 15:31 Dose: 650 mg Al Hydroxide/Mg Hydroxide (Magnesium Hydrox/Alum Hydrox 30 Ml Oral.Susp) 30 ml PO Q6H PRN PRN Reason: Heartburn/Nausea Amoxicillin/Clavulanate Potassium (Amoxicillin/Potassium Clav 875 Mg Tablet) 875 mg PO BID [facility] Last Admin: 04/16/24 08:26 Dose: 875 mg Atorvastatin Calcium (Atorvastatin Calcium 10 Mg Tablet) 10 mg PO DAILY [facility] Last Admin: 04/16/24 08:26 Dose: 10 mg Clonazepam (Clonazepam 0.5 Mg Tablet) 0.5 mg PO TID [facility] Last Admin: 04/16/24 15:27 Dose: 0.5 mg Clonazepam (Clonazepam 0.5 Mg Tablet) 0.5 mg PO DAILY PRN PRN Reason: anxiety Last Admin: 04/16/24 03:28 Dose: 0.5 mg Fluticasone/Vilanterol (Fluticasone/Vilanterol 200/25 Blst.W.Dev) 1 puff INHALE RDAILY [facility] Last Admin: 04/16/24 08:27 Dose: 1 puff Ibuprofen (Ibuprofen 600 Mg Tablet) 600 mg PO Q6H PRN PRN Reason: pain (pain scale 1-10) Last Admin: 04/14/24 14:00 Dose: 600 mg Lamotrigine (Lamotrigine 100 Mg Tablet) 100 mg PO BEDTIME [facility] Last Admin: 04/15/24 23:22 Dose: 100 mg Lamotrigine (Lamotrigine 25 Mg Tablet) 50 mg PO DAILY [facility] Last Admin: 04/16/24 08:26 Dose: 50 mg Levothyroxine Sodium 25 mcg/ (Levothyroxine Sodium 100 mcg) 125 mcg PO DAILY@0600 [facility] Last Admin: 04/16/24 06:25 Dose: 125 mcg Lorazepam (Lorazepam 1 Mg Tablet) 1 mg PO Q2H PRN PRN Reason: CIWA 8-11 Lorazepam (Lorazepam 1 Mg Tablet) 2 mg PO Q2H PRN PRN Reason: CIWA 12-15 Lorazepam (Lorazepam 1 Mg Tablet) 3 mg PO Q2H PRN PRN Reason: CIWA > 15; and call Magnesium Hydroxide (Milk Of Magnesia 30 Ml Oral.Susp) 30 ml PO DAILY PRN PRN Reason: Constipation Mupirocin (Mupirocin 2 % Oint 22 Gm Tube) 1 appl TOPICAL TID PRN; Protocol PRN Reason: Rash Last Admin: 04/14/24 22:04 Dose: 1 appl Nicotine Polacrilex (Nicotine Polacrilex 2 Mg Gum) 4 mg BUCCAL Q2H PRN PRN Reason: Nicotine Cravings Omeprazole (Omeprazole 20 Mg Capsule.Dr) 20 mg PO BID@0630,1430 [facility] Last Admin: 04/16/24 12:56 Dose: 20 mg Sertraline HCl (Sertraline Hcl 25 Mg Tablet) 25 mg PO DAILY [facility] Last Admin: 04/16/24 08:26 Dose: 25 mg Allergies Allergies Allergy/AdvReac Type Severity Reaction Status Date / Time hydrocodone [Vicodin] Allergy Unknown nausea and Verified 04/12/24 13:13 vomiting escitalopram AdvReac Severe Confusion Verified 04/12/24 13:13 hydroxyzine AdvReac Severe Confusion Verified 04/12/24 13:13 trazodone AdvReac Severe Confusion Verified 04/12/24 13:13 promethazine AdvReac Unknown Confusion Verified 04/12/24 13:13 From VICODIN Allergy Unknown VOMITTING Uncoded 04/12/24 13:13 Assessment & Plan Assessment & Plan (1) Benzodiazepine misuse: Status: Acute Code(s): F13.90 - Sedative, hypnotic, or anxiolytic use, unspecified, uncomplicated (2) Anxiety: Status: Acute Code(s): F41.9 - Anxiety disorder, unspecified (3) Depression: Status: Acute Code(s): F32.A - Depression, unspecified (4) COPD (chronic obstructive pulmonary disease): Status: Acute Code(s): J44.9 - Chronic obstructive pulmonary disease, unspecified Plan 04/14: will need eventual full taper of benzos. schedule klonopin 0.5 TID with 0.5 daily PRN for now. pt may go into benzo withdrawal as she appears to have been taking 4x her prescribed amount. will need to monitor withdrawal and medicate more aggressively as indicated. start zoloft 25 mg daily for depression/anxiety. taper lamictal as not indicated as pt does not have bipolar disorder. it is not an evidence-based mood stabilizer so is not likely effective for that purpose, and pt does not have bipolar disorder so it is not indicated for treatment of bipolar depression. decrease morning dose to 50 mg daily, continue with HS dose of 100 mg. refer for new outpt providers. 04/15: continue current mgmt. monitoring for toleration of SSRI addiction and lamictal dose decrease, plus any withdrawal from benzos via CIWA with ativan PRNs. 04/16 continue tx. ciwa score zero. VS stable no signs of withdrawal Reason for continued inpatient stay Substantial Risk for: inability to function Time Spent With Patient Time: Total time managing care of this patient today ____ minutes.
[2024-04-16 19:51] VITALS: BP 140/83; PULSE 70; RESP 12; TEMP 36.8; O2SAT 95
[2024-04-16] MEDS: lamoTRIgine 100 MG TABLET PO (22:05)
[2024-04-16] MEDS: Mupirocin 2 % Oint 22 GM TUBE 1 APPL TOPICAL (22:54)
[2024-04-17] MEDS: clonazePAM 0.5 MG TABLET PO ×4 (01:09→22:03)
[2024-04-17] MEDS: LEVOTHYROXINE SODIUM 125 MCG PO (07:01)
[2024-04-17] MEDS: Omeprazole 20 MG CAPSULE.DR PO ×2 (07:01→14:51)
[2024-04-17 07:35] VITALS: BP 125/68; PULSE 82; RESP 16; TEMP 36.2; O2SAT 96
[2024-04-17] MEDS: Atorvastatin Calcium 10 MG TABLET PO (08:08)
[2024-04-17] MEDS: lamoTRIgine 25 MG TABLET 50 MG PO (08:08)
[2024-04-17] MEDS: Amoxicillin/Potassium Clav 875 MG TABLET PO ×2 (08:08→22:03)
[2024-04-17] MEDS: Fluticasone/Vilanterol 200/25 BLST.W.DEV 1 PUFF INHALE (08:09)
[2024-04-17] MEDS: Acetaminophen 325 MG TABLET 650 MG PO (14:51)
--- NOTE | 2024-04-17 16:04 | HO.PSYCHPN ---
Subjective Subjective Date of Service: 04/17/24 Reason For Visit: Crisis Subjective Notes: Conditional Voluntary Interim History: Pt had difficulty sleeping at night. reports some panic attack last night which she attributes to sertraline as she reports she has never had it. No SI/HI. added melatonin for sleep. Review of Systems Review of Systems Yes all other systems are reviewed and are negative Mental Status Exam Mental Status Exam Narrative: adequately dressed and groomed. cooperative. no PMA/PMR. speech nml rate, amount, loudness, tone, latency. thoughts linear and logical. affect constricted, normo-intense, non-labile. mood fine. no SI/SIBI/HI/AVH expressed. Diagnostics Vital Signs (24Hr): Vital Signs - 24 hr 04/16/24 19:51 04/17/24 07:35 Temperature 98.2 F 97.2 F Pulse Rate 70 82 Respiratory Rate 12 16 Blood Pressure 140/83 H 125/68 Pulse Oximetry 95 96 Oxygen Delivery Method Nasal Cannula Room Air Oxygen Flow Rate 0.5 BMI result Body Mass Index 27.3 Labs 04/12/24 13:47 04/14/24 07:53 Medications Medications Current Medications Acetaminophen (Acetaminophen 325 Mg Tablet) 650 mg PO Q6H PRN PRN Reason: Headache/Pain Mild Scale (1-3) Last Admin: 04/17/24 14:51 Dose: 650 mg Al Hydroxide/Mg Hydroxide (Magnesium Hydrox/Alum Hydrox 30 Ml Oral.Susp) 30 ml PO Q6H PRN PRN Reason: Heartburn/Nausea Amoxicillin/Clavulanate Potassium (Amoxicillin/Potassium Clav 875 Mg Tablet) 875 mg PO BID [facility] Stop: 04/19/24 23:59 Last Admin: 04/17/24 08:08 Dose: 875 mg Atorvastatin Calcium (Atorvastatin Calcium 10 Mg Tablet) 10 mg PO DAILY [facility] Last Admin: 04/17/24 08:08 Dose: 10 mg Clonazepam (Clonazepam 0.5 Mg Tablet) 0.5 mg PO TID [facility] Last Admin: 04/17/24 14:51 Dose: 0.5 mg Clonazepam (Clonazepam 0.5 Mg Tablet) 0.5 mg PO DAILY PRN PRN Reason: anxiety Last Admin: 04/17/24 01:09 Dose: 0.5 mg Fluticasone/Vilanterol (Fluticasone/Vilanterol 200/25 Blst.W.Dev) 1 puff INHALE RDAILY [facility] Last Admin: 04/17/24 08:09 Dose: 1 puff Ibuprofen (Ibuprofen 600 Mg Tablet) 600 mg PO Q6H PRN PRN Reason: pain (pain scale 1-10) Last Admin: 04/14/24 14:00 Dose: 600 mg Lamotrigine (Lamotrigine 100 Mg Tablet) 100 mg PO BEDTIME [facility] Last Admin: 04/16/24 22:05 Dose: 100 mg Lamotrigine (Lamotrigine 25 Mg Tablet) 50 mg PO DAILY [facility] Last Admin: 04/17/24 08:08 Dose: 50 mg Levothyroxine Sodium 25 mcg/ (Levothyroxine Sodium 100 mcg) 125 mcg PO DAILY@0600 [facility] Last Admin: 04/17/24 07:01 Dose: 125 mcg Magnesium Hydroxide (Milk Of Magnesia 30 Ml Oral.Susp) 30 ml PO DAILY PRN PRN Reason: Constipation Melatonin (Melatonin 3 Mg Tablet) 6 mg PO BEDTIME [facility] Mupirocin (Mupirocin 2 % Oint 22 Gm Tube) 1 appl TOPICAL TID PRN; Protocol PRN Reason: Rash Last Admin: 04/16/24 22:54 Dose: 1 appl Nicotine Polacrilex (Nicotine Polacrilex 2 Mg Gum) 4 mg BUCCAL Q2H PRN PRN Reason: Nicotine Cravings Omeprazole (Omeprazole 20 Mg Capsule.Dr) 20 mg PO BID@0630,1430 [facility] Last Admin: 04/17/24 14:51 Dose: 20 mg Sertraline HCl (Sertraline Hcl 25 Mg Tablet) 25 mg PO DAILY [facility] Last Admin: 04/17/24 08:18 Dose: Not Given Allergies Allergies Allergy/AdvReac Type Severity Reaction Status Date / Time hydrocodone [Vicodin] Allergy Unknown nausea and Verified 04/12/24 13:13 vomiting escitalopram AdvReac Severe Confusion Verified 04/12/24 13:13 hydroxyzine AdvReac Severe Confusion Verified 04/12/24 13:13 trazodone AdvReac Severe Confusion Verified 04/12/24 13:13 promethazine AdvReac Unknown Confusion Verified 04/12/24 13:13 From VICODIN Allergy Unknown VOMITTING Uncoded 04/12/24 13:13 Assessment & Plan Assessment & Plan (1) Benzodiazepine misuse: Status: Acute Code(s): F13.90 - Sedative, hypnotic, or anxiolytic use, unspecified, uncomplicated (2) Anxiety: Status: Acute Code(s): F41.9 - Anxiety disorder, unspecified (3) Depression: Status: Acute Code(s): F32.A - Depression, unspecified (4) COPD (chronic obstructive pulmonary disease): Status: Acute Code(s): J44.9 - Chronic obstructive pulmonary disease, unspecified Plan 04/14: will need eventual full taper of benzos. schedule klonopin 0.5 TID with 0.5 daily PRN for now. pt may go into benzo withdrawal as she appears to have been taking 4x her prescribed amount. will need to monitor withdrawal and medicate more aggressively as indicated. start zoloft 25 mg daily for depression/anxiety. taper lamictal as not indicated as pt does not have bipolar disorder. it is not an evidence-based mood stabilizer so is not likely effective for that purpose, and pt does not have bipolar disorder so it is not indicated for treatment of bipolar depression. decrease morning dose to 50 mg daily, continue with HS dose of 100 mg. refer for new outpt providers. 04/15: continue current mgmt. monitoring for toleration of SSRI addiction and lamictal dose decrease, plus any withdrawal from benzos via CIWA with ativan PRNs. 04/16 continue tx Reason for continued inpatient stay Substantial Risk for: inability to function Time Spent With Patient Time: Total time managing care of this patient today ____ minutes.
[2024-04-17 20:00] VITALS: BP 154/77; PULSE 72; RESP 15; TEMP 36.3; O2SAT 95
[2024-04-17] MEDS: Melatonin 3 MG TABLET 6 MG PO (22:04)
[2024-04-17] MEDS: lamoTRIgine 100 MG TABLET PO (22:05)
[2024-04-18] MEDS: clonazePAM 0.5 MG TABLET PO ×4 (04:44→21:34)
[2024-04-18] MEDS: Acetaminophen 325 MG TABLET 650 MG PO ×3 (05:11→21:33)
--- NOTE | 2024-04-18 05:16 | PC.NURSE ---
Woke up at 0440 with c/o panic attack and headache, had PRNs Klonopin, and Tylenol.
[2024-04-18] MEDS: LEVOTHYROXINE SODIUM 125 MCG PO (06:34)
[2024-04-18] MEDS: Omeprazole 20 MG CAPSULE.DR PO ×2 (06:34→14:45)
[2024-04-18 07:27] VITALS: BP 86/74; PULSE 77; RESP 16; TEMP 36.8; O2SAT 95
[2024-04-18 08:30] VITALS: BP 119/77; PULSE 87; O2SAT 95
[2024-04-18] MEDS: Amoxicillin/Potassium Clav 875 MG TABLET PO ×2 (08:32→21:34)
[2024-04-18] MEDS: Atorvastatin Calcium 10 MG TABLET PO (08:33)
[2024-04-18] MEDS: Sertraline HCL 25 MG TABLET PO (08:34)
[2024-04-18] MEDS: lamoTRIgine 25 MG TABLET 50 MG PO (08:34)
[2024-04-18] MEDS: Fluticasone/Vilanterol 200/25 BLST.W.DEV 1 PUFF INHALE (08:37)
[2024-04-18] MEDS: Mupirocin 2 % Oint 22 GM TUBE 1 APPL TOPICAL (08:40)
--- NOTE | 2024-04-18 15:00 | P.PNPSI_ITS ---
Subjective Subjective Date of Service: 04/18/24 Reason For Visit: Crisis Interim History: tired. up late due to loud patient across the mata. wanting to discharge, but not until she has outpt appointments. per staff, +meds. bright. refused zoloft once over w/e thinking it was causing her panic attacks, then decided it wasn't the zoloft and started taking it again. Mental Status Exam Mental Status Exam Narrative: adequately dressed and groomed. cooperative. no PMA/PMR. speech nml rate, amount, loudness, tone, latency. thoughts linear and logical. affect constricted, normo-intense, non-labile. mood not assessed. no SI/SIBI/HI/AVH expressed. Diagnostics Vital Signs (24Hr): Vital Signs - 24 hr 04/17/24 20:00 04/18/24 07:27 04/18/24 08:30 Temperature 97.4 F 98.2 F Pulse Rate 72 77 87 Respiratory Rate 15 16 Blood Pressure 154/77 H 86/74 L 119/77 Pulse Oximetry 95 95 95 Oxygen Delivery Method Room Air Room Air Nasal Cannula Oxygen Flow Rate 1 BMI result Body Mass Index 27.3 Labs 04/12/24 13:47 04/14/24 07:53 Medications Medications Current Medications Acetaminophen (Acetaminophen 325 Mg Tablet) 650 mg PO Q6H PRN PRN Reason: Headache/Pain Mild Scale (1-3) Last Admin: 04/18/24 11:04 Dose: 650 mg Al Hydroxide/Mg Hydroxide (Magnesium Hydrox/Alum Hydrox 30 Ml Oral.Susp) 30 ml PO Q6H PRN PRN Reason: Heartburn/Nausea Amoxicillin/Clavulanate Potassium (Amoxicillin/Potassium Clav 875 Mg Tablet) 875 mg PO BID [facility] Stop: 04/19/24 23:59 Last Admin: 04/18/24 08:32 Dose: 875 mg Atorvastatin Calcium (Atorvastatin Calcium 10 Mg Tablet) 10 mg PO DAILY [facility] Last Admin: 04/18/24 08:33 Dose: 10 mg Clonazepam (Clonazepam 0.5 Mg Tablet) 0.5 mg PO TID [facility] Last Admin: 04/18/24 14:45 Dose: 0.5 mg Clonazepam (Clonazepam 0.5 Mg Tablet) 0.5 mg PO DAILY PRN PRN Reason: anxiety Last Admin: 04/18/24 04:44 Dose: 0.5 mg Fluticasone/Vilanterol (Fluticasone/Vilanterol 200/25 Blst.W.Dev) 1 puff INHALE RDAILY [facility] Last Admin: 04/18/24 08:37 Dose: 1 puff Ibuprofen (Ibuprofen 600 Mg Tablet) 600 mg PO Q6H PRN PRN Reason: pain (pain scale 1-10) Last Admin: 04/14/24 14:00 Dose: 600 mg Lamotrigine (Lamotrigine 100 Mg Tablet) 100 mg PO BEDTIME [facility] Last Admin: 04/17/24 22:05 Dose: 100 mg Lamotrigine (Lamotrigine 25 Mg Tablet) 50 mg PO DAILY [facility] Last Admin: 04/18/24 08:34 Dose: 50 mg Levothyroxine Sodium 25 mcg/ (Levothyroxine Sodium 100 mcg) 125 mcg PO DAILY@0600 [facility] Last Admin: 04/18/24 06:34 Dose: 125 mcg Magnesium Hydroxide (Milk Of Magnesia 30 Ml Oral.Susp) 30 ml PO DAILY PRN PRN Reason: Constipation Melatonin (Melatonin 3 Mg Tablet) 6 mg PO BEDTIME [facility] Last Admin: 04/17/24 22:04 Dose: 6 mg Mupirocin (Mupirocin 2 % Oint 22 Gm Tube) 1 appl TOPICAL TID PRN; Protocol PRN Reason: Rash Last Admin: 04/18/24 08:40 Dose: 1 appl Nicotine Polacrilex (Nicotine Polacrilex 2 Mg Gum) 4 mg BUCCAL Q2H PRN PRN Reason: Nicotine Cravings Omeprazole (Omeprazole 20 Mg Capsule.Dr) 20 mg PO BID@0630,1430 [facility] Last Admin: 04/18/24 14:45 Dose: 20 mg Sertraline HCl (Sertraline Hcl 25 Mg Tablet) 25 mg PO DAILY [facility] Last Admin: 04/18/24 08:34 Dose: 25 mg Allergies Allergies Allergy/AdvReac Type Severity Reaction Status Date / Time hydrocodone [Vicodin] Allergy Unknown nausea and Verified 04/12/24 13:13 vomiting escitalopram AdvReac Severe Confusion Verified 04/12/24 13:13 hydroxyzine AdvReac Severe Confusion Verified 04/12/24 13:13 trazodone AdvReac Severe Confusion Verified 04/12/24 13:13 promethazine AdvReac Unknown Confusion Verified 04/12/24 13:13 From VICODIN Allergy Unknown VOMITTING Uncoded 04/12/24 13:13 Assessment & Plan Assessment & Plan (1) Benzodiazepine misuse: Status: Acute Code(s): F13.90 - Sedative, hypnotic, or anxiolytic use, unspecified, uncomplicated (2) Anxiety: Status: Acute Code(s): F41.9 - Anxiety disorder, unspecified (3) Depression: Status: Acute Code(s): F32.A - Depression, unspecified (4) COPD (chronic obstructive pulmonary disease): Status: Acute Code(s): J44.9 - Chronic obstructive pulmonary disease, unspecified Plan 04/14: will need eventual full taper of benzos. schedule klonopin 0.5 TID with 0.5 daily PRN for now. pt may go into benzo withdrawal as she appears to have been taking 4x her prescribed amount. will need to monitor withdrawal and medicate more aggressively as indicated. start zoloft 25 mg daily for depression/anxiety. taper lamictal as not indicated as pt does not have bipolar disorder. it is not an evidence-based mood stabilizer so is not likely effective for that purpose, and pt does not have bipolar disorder so it is not indicated for treatment of bipolar depression. decrease morning dose to 50 mg daily, continue with HS dose of 100 mg. refer for new outpt providers. 04/15: continue current mgmt. monitoring for toleration of SSRI addition and lamictal dose decrease, plus any withdrawal from benzos via CIWA with ativan PRNs. 04/16 continue tx 04/18: continue current mgmt. planning for discharge tomorrow. Reason for continued inpatient stay Substantial Risk for: inability to function, rapid decompensation and med/psych decompensation Time Spent With Patient Time: Total time managing care of this patient today __25__ minutes.
[2024-04-18 20:00] VITALS: BP 144/65; PULSE 83; RESP 18; TEMP 36.2; O2SAT 95
[2024-04-18] MEDS: lamoTRIgine 100 MG TABLET PO (21:35)
[2024-04-18] MEDS: Melatonin 3 MG TABLET 6 MG PO (23:12)
[2024-04-19] MEDS: LEVOTHYROXINE SODIUM 125 MCG PO (06:34)
[2024-04-19] MEDS: Omeprazole 20 MG CAPSULE.DR PO (06:40)
[2024-04-19] MEDS: Acetaminophen 325 MG TABLET 650 MG PO (06:40)
[2024-04-19 07:56] VITALS: BP 123/65; PULSE 76; RESP 16; TEMP 36.3; O2SAT 92
[2024-04-19] MEDS: Atorvastatin Calcium 10 MG TABLET PO (08:32)
[2024-04-19] MEDS: Amoxicillin/Potassium Clav 875 MG TABLET PO (08:32)
[2024-04-19] MEDS: Sertraline HCL 25 MG TABLET PO (08:32)
[2024-04-19] MEDS: lamoTRIgine 25 MG TABLET 50 MG PO (08:33)
[2024-04-19] MEDS: clonazePAM 0.5 MG TABLET PO (08:33)
[2024-04-19] MEDS: Fluticasone/Vilanterol 200/25 BLST.W.DEV 1 PUFF INHALE (08:34)
--- NOTE | 2024-04-19 10:07 | PM.PSYDC ---
DS: Providers Provider Date of Service: 04/19/24 Date of admission: 04/13/24 13:30 Primary care physician: CARA Hyde DS: Diagnosis Discharge Diagnosis (1) Benzodiazepine misuse: Status: Acute (2) Anxiety: Status: Acute (3) Depression: Status: Acute (4) COPD (chronic obstructive pulmonary disease): Status: Acute DS: Medications Discharge Medications Home Medications: Home Medications ?Medication ?Instructions ?Recorded ?Confirmed omeprazole 20 mg capsule,delayed 20 mg PO BID 05/27/22 04/12/24 release budesonide-formoterol HFA 160 2 puff inhalation BID 05/06/23 04/12/24 mcg-4.5 mcg/actuation aerosol inhaler (Symbicort) levothyroxine 125 mcg tablet 125 mcg PO DAILY 04/12/24 04/12/24 mupirocin 2 % topical ointment 1 appl topical TID 04/12/24 04/12/24 simvastatin 10 mg tablet 10 mg PO BEDTIME 04/12/24 04/12/24 Previous Rx's ?Medication ?Instructions ?Recorded clonazepam 1 mg tablet (Klonopin) See Rx Instructions .Route 04/19/24 .COMPLEX #60 tabs lamotrigine 100 mg tablet 100 mg PO BEDTIME #0 tabs 04/19/24 lamotrigine 25 mg tablet 50 mg (2 x 25 mg) PO DAILY #0 tabs 04/19/24 sertraline 25 mg tablet 25 mg PO DAILY 30 days #30 tabs 04/19/24 Mental Status Exam Mental Status Exam Narrative: adequately dressed and groomed. cooperative. no PMA/PMR. speech nml rate, amount, loudness, tone, latency. thoughts linear and logical. affect flexible, normo-intense, non-labile. mood happy. no SI/SIBI/HI/AVH. Data Data Completed and Pending Completed studies during hospitalization [Text1]: 04/12/24 04/14/24 04/14/24 13:47 07:53 08:07 WBC 7.6 RBC 3.94 L Hgb 13.5 Hct 40.6 MCV 103.0 H MCH 34.3 H MCHC 33.3 RDW 12.8 Plt Count 357 MPV 8.8 L Immature Gran % (Auto) 0.3 Neut % (Auto) 48.6 Lymph % (Auto) 34.1 [place] % (Auto) 9.6 Eos % (Auto) 6.6 H Baso % (Auto) 0.8 Lymph # (Auto) 2.6 [place] # (Auto) 0.7 Eos # (Auto) 0.5 H Baso # (Auto) 0.1 Abs Immat Gran (auto) 0.02 Absolute Neuts (auto) 3.7 Absolute Nucleated RBC 0.000 Nucleated RBC % (auto) 0.0 Sodium 142 141 Potassium 3.7 4.4 Chloride 105 105 Carbon Dioxide 32 H 30 H Anion Gap 9 L 10 L BUN 12 10 Creatinine 0.86 0.83 Estim Creat Clear Calc 69.4 71.9 Estimated GFR > 60 > 60 POC Glucose 106 Random Glucose 81 Fasting Glucose 94 Calcium 9.9 9.8 Magnesium 2.0 Total Bilirubin 0.2 0.3 AST 26 24 ALT 19 18 Alkaline Phosphatase 80 70 Total Protein 7.6 7.3 Albumin 4.3 4.0 Triglycerides 139 Cholesterol 191 LDL Cholesterol, Calc 107 H HDL Cholesterol 57 TSH 0.36 Urine Color Yellow Urine Appearance Clear Urine pH 5.5 Ur Specific [place] 1.025 Urine Protein Negative Urine Glucose (UA) Negative Urine Ketones Negative Urine Blood Negative Urine Nitrite Negative Ur Leukocyte Esterase Negative Urine Opiates Screen Not Detected Ur Buprenorphine Scrn Not Detected Ur Oxycodone Screen Not Detected Urine Methadone Screen Not Detected Urine Fentanyl Screen Not Detected Ur Barbiturates Screen Not Detected Ur Phencyclidine Scrn Not Detected Ur Amphetamines Screen Not Detected U Benzodiazepines Scrn POSITIVE H Urine Cocaine Screen Not Detected U Marijuana (THC) Screen Not Detected Ethyl Alcohol < 10 DS: Summary Hospital Course Hospital Course: per 04/14 admission note: \HPI Narrative: per CARE team elle pt self-presented to ED c/o klonopin withdrawal, having not had any for about 3 days. c/o increased depression and anxiety, managing Sx by over-using her prescribed klonopin. per pharmacy collateral, pt filled script for #90 klonopin 0.5 mg tabs 04/02 and reportedly used them up several days prior to presenting to the ED 04/12; that would indicate using up 90 tabs in the space of a week, or 12-13 tabs daily, or 6-6.5 mg klonopin daily. for comparison, she was prescribed up to 3 tabs daily, or 1.5 mg. pt requested medication adjustment in the ED. she c/o having scared feeling and increased panic attacks. sleep and appetite were reported to be good. she denied SI/HI/AVH. on interview with MD, pt is calm and cooperative. denies safety concerns, denies substance abuse Hx. reports long h/o anxiety, h/o SSRI trials as well as long-term high-dose benzo prescription. reports taking twice her prescribed amount of klonopin, but the true figure seems likely closer to 4 times her prescribed amount (see above). unclear if pt is being deceptive on this point or is merely ignorant. reports that 0.5 TID is not enough to allow her to feel at all comfortable at the moment, MD agrees to increase available 0.5 mg doses to 4 per day rather than 3. pt denies any h/o MDE, has no h/o hosp aside from delirium last year; therefore, even if long-term high-dose benzo prescribing were keeping any kady in check, she does not meet criteria for bipolar disorder. the lack of any indication for lamictal for her was discussed, and pt agreed to begin taper. in addition, the indication for SSRI for depression and anxiety was discussed, pt agreed to start zoloft 25 mg daily. she feels her outpt meds prescriber is inadequately managing her long-term benzo taper, moving too aggressively, and she is requesting a new prescriber. Past Psychiatric History: hosps: M5 may 2023, delirium from benzo withdrawal. SA: denies SIB: denies HIB: denies outpt: [facility], but she had last appointment a month ago and does not intend to return. Medical Evaluation Reviewed: Yes [facility] Medical History (Updated 04/14/24 @ 15:40 by Armani Ware MD) COPD (chronic obstructive pulmonary disease) Hypothyroid Bipolar 1 disorder Narrative: lipids supplemental oxygen Surgical History History of carpal tunnel surgery H/O shoulder surgery Family History: denies FH of mental illness. report father had alcohol use disorder Social History: lives alone in her own apartment in [place], [place]. on SSDI since 2009. 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 born and raised in [place] by bio mom and father. lived with 6 sibs. reported a good childhood. HS grad. no college. . 3 kids. Substance History: tobacco - stopped smoking in 09/2021. COPD. alcohol - denies cannabis - denies benzos - Rxed only. denies the use of other substances of abuse. 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 schedule klonopin 0.5 TID with 0.5 daily PRN for now. pt may go into benzo withdrawal as she appears to have been taking 4x her prescribed amount. will need to monitor withdrawal and medicate more aggressively as indicated. start zoloft 25 mg daily for depression/anxiety. taper lamictal as not indicated as pt does not have bipolar disorder. it is not an evidence-based mood stabilizer so is not likely effective for that purpose, and pt does not have bipolar disorder so it is not indicated for treatment of bipolar depression. decrease morning dose to 50 mg daily, continue with HS dose of 100 mg. refer for new outpt providers. 04/15: continue current mgmt. monitoring for toleration of SSRI addition and lamictal dose decrease, plus any withdrawal from benzos via CIWA with ativan PRNs. 04/16: continue tx 04/18: continue current mgmt. planning for discharge tomorrow. 04/19: stable, safe. meds reviewed, reconciled, prescribed. discharged to outpt care as per plan. Time Spent with Patient Time attestation: Total time managing care of this patient today __35__ minutes. Discharge Plan Discharge Anticipated Discharge Date/Time: 04/19/24 10:30 Patient Disposition: Home, Self-Care Discharge Diagnosis: Anxiety Disorder NOS Benzodiazepine Misuse Depressive Disorder NOS COPD Referrals: Darlin Connolly (Therapy) [Other] - 05/02/24 10:00 am (IN OFFICE APPOINTMENT) Carmencita Jha (Psychiatry) [Other] - 05/24/24 9:00 am (IN OFFICE APPOINTMENT) Ioana Kincaid PA [Primary Care Provider] - 1 Week Discharge Medications: New lamotrigine 25 mg Tablet 50 mg PO DAILY Qty: 0 0RF sertraline 25 mg Tablet 25 mg PO DAILY 30 Days Qty: 30 1RF lamotrigine 100 mg Tablet 100 mg PO BEDTIME Qty: 0 0RF clonazepam [Klonopin] 1 mg tablet See Rx Instructions .ROUTE .COMPLEX Qty: 60 1RF Rx Instructions: take one half tab three times daily and another one half tab up to once daily as needed for anxiety. Continued levothyroxine 125 mcg tablet 125 mcg PO DAILY mupirocin 2 % ointment 1 appl topical TID simvastatin 10 mg tablet 10 mg PO BEDTIME omeprazole 20 mg capsule,delayed release(DR/EC) 20 mg PO BID budesonide-formoterol [Symbicort] 160-4.5 mcg/actuation HFA aerosol inhaler 2 puff inhalation BID Discontinued clonazepam 0.5 mg tablet 0.5 mg PO TID PRN (Reason: Anxiety) amoxicillin-pot clavulanate 875-125 mg tablet 1 tab PO BID montelukast 10 mg tablet 10 mg PO DAILY lamotrigine 100 mg tablet 100 mg PO BID Discharge Orders: Discharge Order (Routine); Ordered 04/19/24 Ordered By: Armani Ware Diet: Advance to usual diet Activity on Discharge: As tolerated Stand Alone Forms: Patient Portal Discharge page, Community Support Print Language: Citizen Of [place] Care Plan Goals: remain safe and stable in the outpatient treatment setting Health Concerns: COPD Plan of Treatment: take medications as prescribed, attend appointments as scheduled Assessment: not at imminent risk of harm to self or others Discharge Date/Time: 04/19/24 10:50
== END 2024-04-19 10:50 | disposition home or self-care (01) | DRG 881 ==
LOC: HO.ED 15:52 → HO.PADLT16 04-13 13:37
PROVIDERS: Physician Assistant; Physician Assistant Medical; Admitting Provider Registered Nurse; Emergency Provider Emergency Medicine; PCP Physician Assistant Medical; Visit Provider Psychiatry & Neurology Psychiatry
DX: F32.A Depression, unspecified (principal); F41.9 Anxiety disorder, unspecified; J44.9 Chronic obstructive pulmonary disease, unspecified; F13.90 Sedative, hypnotic, or anxiolytic use, unspecified, uncomplicated; E03.9 Hypothyroidism, unspecified; Z99.81 Dependence on supplemental oxygen; Z87.891 Personal history of nicotine dependence; Z79.890 Hormone replacement therapy; Z79.899 Other long term (current) drug therapy
CPT/HCPCS: 36415; 80053; 80061; 80307; 81003; 82947; 83735; 84443; 85025; 93005; 99285; S9485

== ENCOUNTER → 2024-04-13 09:49 | Outpatient (BNV) | payer MEDICARE, SELFPAY | PROVIDERS: Admitting Provider Registered Nurse; Emergency Provider Emergency Medicine; PCP Physician Assistant Medical; Visit Provider Internal Medicine Cardiovascular Disease | DX: R94.31 Abnormal electrocardiogram [ECG] [EKG] (principal) | CPT/HCPCS: 93010 ==

== ENCOUNTER → 2024-04-13 13:30 | Outpatient (BNV) | payer MEDICARE, SELFPAY | PROVIDERS: Admitting Provider Registered Nurse; Emergency Provider Emergency Medicine; PCP Physician Assistant Medical; Visit Provider Psychiatry & Neurology Psychiatry | DX: F32.2 Major depressive disorder, single episode, severe without psychotic features (principal); F13.90 Sedative, hypnotic, or anxiolytic use, unspecified, uncomplicated; F41.9 Anxiety disorder, unspecified; J44.9 Chronic obstructive pulmonary disease, unspecified | CPT/HCPCS: 90792; 99231; 99232; 99239 ==

== ENCOUNTER 2024-05-11 11:59 | Outpatient (REF) | payer MEDICARE, SELFPAY ==
--- NOTE | ~2024-05-11 | MM_ITS ---
EXAMINATION: MM SCREENING DIGITAL BREAST TOMOSYNTHESIS, BILATERAL CLINICAL INFORMATION: Screening. Asymptomatic. COMPARISON: Mammography: Comparison is made with available priors TECHNIQUE: Digital breast mammography with tomosynthesis is performed in both the craniocaudal and mediolateral oblique views along with computer-aided detection (CAD). FINDINGS: The breasts are heterogeneously dense, which may obscure small masses (ACR BI-RADS breast composition Category c). There are no significant masses, abnormal calcifications, or other abnormalities. MM/MM tomosynthesis screening BI IMPRESSION: No mammographic evidence of malignancy. ASSESSMENT: BI-RADS BI-RADS 1 - Negative RECOMMENDATION: Routine annual mammography screening. 1 year F/U This examination should not preclude the clinical evaluation of a suspicious palpable abnormality. This patient's information was entered into a reminder system with a target due date for their next mammogram. Electronically signed by: Norah Key DO 05/18/2024 02:51 PM BABAR
== END 2024-05-11 12:00 | disposition home or self-care (01) ==
LOC: HO.MAMMO 11:59
PROVIDERS: PCP Physician Assistant Medical; Visit Provider Physician Assistant Medical
DX: Z12.31 Encounter for screening mammogram for malignant neoplasm of breast (principal)
CPT/HCPCS: 77063; 77067

== ENCOUNTER → 2024-05-11 12:15 | Outpatient (BNV) | payer MEDICARE, SELFPAY | PROVIDERS: PCP Physician Assistant Medical; Visit Provider Internal Medicine | DX: Z12.31 Encounter for screening mammogram for malignant neoplasm of breast (principal) | CPT/HCPCS: 77063; 77067 ==

== ENCOUNTER 2025-05-30 10:09 | Outpatient (AMB) | payer MEDICARE, SELFPAY ==
--- NOTE | 2025-05-30 10:54 | MHC.OFFVIS ---
Vital Signs 05/30/25 11:03 Height 5 ft 7 in Weight 178 lb BMI 27.9 BP 128/66 Blood Pressure Location Lt brachial Position Sitting Intake Visit Reasons: Burning on Clitoris Area Cable Way Operator Required: No Marine Biologist: Marine Biologist Present ([facility]) Allergies hydrocodone (Vicodin) Allergy (Unknown, Verified 04/12/24 13:13) nausea and vomiting escitalopram Adverse Reaction (Severe, Verified 04/12/24 13:13) Confusion hydroxyzine Adverse Reaction (Severe, Verified 04/12/24 13:13) Confusion trazodone Adverse Reaction (Severe, Verified 04/12/24 13:13) Confusion promethazine Adverse Reaction (Unknown, Verified 04/12/24 13:13) Confusion From VICODIN Allergy (Unknown, Uncoded 04/12/24 13:13) VOMITTING Post menopausal: Yes HPI Comments Details: Patient presents today with 10 days of labial burning and pelvic pain. She reports she used a Monistat last use 3 days ago that was not effective. She also reports that on yesterday she had blood in her urine, But today it is clear She does admit that she masturbates with the silver bullet is concerned that this may not have been clean. [facility] Medical History (Updated 04/27/24 @ 00:03 by Arun Contreras) COPD (chronic obstructive pulmonary disease) Hypothyroid Bipolar 1 disorder Surgical History History of carpal tunnel surgery H/O shoulder surgery Family History Father Lung cancer Social History Household Members: None Housing: House Do you presently have visiting nurse or other home services: No Alcohol intake: former Patient Tobacco Use Status: Former Tobacco user Tobacco use type: Cigarette Cigarettes Per Day: 10 Years Smoked: 30 e-Cigarette/Vaping Use: Former Use Second Hand Smoke Exposure: No service: No Sexual orientation: Straight/Heterosexual Gender identity: Female Female Reproductive History Menstrual Age of Menarche: 12 Menopause type: natural Total pregnancies: 4 Full term: 3 Number of Living Children: 3 Ab spontaneous: 1 Date of last pap smear: 05/24/24 History of abnormal pap smear: No History of STI: No Date of Mammogram: 08/01/24 History of abnormal mammogram: No Review of Systems Const Reports no additional complaints Eyes Reports no additional complaints ENT Reports no additional complaints Card Reports no additional complaints Resp Reports no additional complaints GI Reports no additional complaints Reports as per HPI Skin/Breast Reports system reviewed and no additional complaints, except as documented Physical Exam Vital Signs: Last Vital Signs BP 128/66 05/30/25 11:03 BMI result Body Mass Index 27.9 Const General: cooperative and healthy appearing Orientation/consciousness: patient oriented x3 HEENT Head: Yes normocephalic Other: lichen sclerosa of the upper vulva/ just above the clitorus General: Yes no CVA tenderness Speculum Exam - Vagina: vagina atrophic Speculum Exam - Cervix: normal appearance of the cervix Back/Spine/Pelvis Back: no CVA tenderness Skin General skin exam: no rashes or lesions noted Neuro General: patient oriented x3 Psych Affect: normal affect Assessment & Plan Assessment & Plan (1) 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: Code(s): R10.20 - Pelvic and perineal pain unspecified side (2) Hematuria: Code(s): R31.9 - Hematuria, unspecified Qualifiers: Hematuria type: other microscopic Qualified Code(s): R31.29 - Other microscopic hematuria (3) Burning sensation of vulva: Code(s): N94.89 - Other specified conditions associated with female genital organs and menstrual cycle (4) Lichen sclerosus et atrophicus of the vulva: Code(s): N90.4 - Leukoplakia of vulva Plan Labs today BD affirm Urine culture Discussed vaginal hygiene, loose cotton undergarments, avoidance of deodorant and sprays, cleansing of dildos/silicone silicone toys cont to push fluids temovate topical bid x 14 days Macrobid bid x 5 days pt will keep upcoming appt for ANNUAL Pending results will treat or adjust treatment if indicated Orders: Orders UA CC w/rflx Micro + Cult Today R10.20 - Pelvic and perineal pain unspecified side, R31.29 - Other microscopic hematuria Bacterial Vaginosis Panel Today N94.89 - Other specified conditions associated with female genital organs and menstrual cycle, R10.20 - Pelvic and perineal pain unspecified side Medications: New clobetasol 0.05% 1 appl topical BID 15 grams 0RF 2 weeks nitrofurantoin monohyd/m-cryst 100 mg (Macrobid) must administer with a meal/food 100 mg PO BID 10 caps 0RF 5 days Coding Level of Care Code Est Pt Level 4 (82074) Diagnoses 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
[2025-05-30 11:03] VITALS: BP 128/66; BMI 27.9
== END 2025-05-30 11:34 | disposition home or self-care (01) ==
LOC: HO.HWSM 10:09
PROVIDERS: PCP Physician Assistant Medical; Visit Provider Advanced Practice Midwife
DX: R10.20 Pelvic and perineal pain unspecified side (principal); R31.29 Other microscopic hematuria; N94.89 Other specified conditions associated with female genital organs and menstrual cycle; N90.4 Leukoplakia of vulva
CPT/HCPCS: 99214

== ENCOUNTER 2025-05-30 10:09 | Outpatient (REF) | payer MEDICARE, SELFPAY ==
[2025-05-31 11:51] LABS: Appearance Urine Cloudy; Glucose Urine UA Negative (Negative); PH 5.5 (5.0-9.0); Specific Gravity - Urine 1.020 (1.005-1.025); UMIC TRIGGER UACC YES
[2025-05-31 12:09] LABS: UACC Culture Trigger YES
[2025-05-31 13:02] LABS: Bacterial Vaginosis PCR NEGATIVE (Negative); Candida Group PCR NOT DETECTED (Not Detect); Candida glab krusei PCR NOT DETECTED (Not Detect); Trichomonas vaginalis PCR NOT DETECTED (Not Detect)
== END 2025-05-30 10:10 | disposition home or self-care (01) ==
LOC: HO.LAB 10:09
PROVIDERS: PCP Physician Assistant Medical; Visit Provider Advanced Practice Midwife
DX: N94.89 Other specified conditions associated with female genital organs and menstrual cycle (principal); N90.4 Leukoplakia of vulva; R10.20 Pelvic and perineal pain unspecified side; R31.29 Other microscopic hematuria
CPT/HCPCS: 81001; 81515; 87086